=== PATIENT | female | born 1960 ===

== ENCOUNTER 2024-06-14 14:36 | Outpatient (BNV) | payer MEDICARE, SELFPAY | END 2024-06-23 15:05 | PROVIDERS: Admitting Provider Social Worker; PCP Internal Medicine; Visit Provider Radiology Diagnostic Radiology | DX: M79.662 Pain in left lower leg (principal); R22.42 Localized swelling, mass and lump, left lower limb; M25.461 Effusion, right knee; M17.11 Unilateral primary osteoarthritis, right knee | CPT/HCPCS: 73560; 93971 ==

== ENCOUNTER 2024-06-14 14:36 | Outpatient (BNV) | payer MEDICARE, SELFPAY | END 2024-06-17 17:57 | PROVIDERS: Admitting Provider Social Worker; PCP Internal Medicine; Visit Provider Nuclear Medicine | DX: Z86.718 Personal history of other venous thrombosis and embolism (principal) | CPT/HCPCS: 93970 ==

== ENCOUNTER 2024-06-14 14:36 | Inpatient (IN) | payer MEDICARE, SELFPAY ==
--- NOTE | ~2024-06-14 | US_ITS ---
CLINICAL HISTORY: r o DVT Venous duplex ultrasound bilateral lower extremity Comparison: None Findings: The visualized deep veins are fully compressible with normal Doppler color flow and spectral tracings. No popliteal cyst. Soft tissue edema of the lower extremity. IMPRESSION: 1. Negative for bilateral lower extremity deep vein thrombosis. This document has been electronically signed by: Maida Haq MD on 06/17/2024 20:13:23
--- NOTE | ~2024-06-14 | XR_ITS ---
EXAMINATION: XR KNEE, RIGHT CLINICAL INFORMATION: pain, effusion COMPARISON: None available. TECHNIQUE: Two views of the right knee. FINDINGS: Joint space narrowing involving the medial lateral compartment and the patellofemoral. Marginal osteophyte formation femoral condyles tibial plateau posterior superior and posterior inferior patella. Suprapatellar bursa joint effusion, small to moderate volume. No acute cortical disruption or malalignment. No lytic or blastic lesions. 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 Suprapatellar bursa joint effusion, small to moderate volume. Electronically signed by: Madhu Perez MD 06/23/2024 03:43 PM EDT
--- NOTE | ~2024-06-14 | US_ITS ---
CLINICAL HISTORY: pain, swelling Venous duplex ultrasound left lower extremity Comparison: US - US VENOUS DUPLEX LE BI - 06/17/24 17:48 EST Findings: The visualized deep veins are fully compressible with normal Doppler color flow and spectral tracings. No popliteal cyst. IMPRESSION: 1. Negative for left lower extremity deep vein thrombosis. This document has been electronically signed by: Terrie Atkins MD on 06/23/2024 17:54:06
--- NOTE | 2024-06-14 17:21 | PC.NURSE ---
Dahiana was a [facility] expedited admission who came to us from [facility] arriving by ambulance. There is little known about her psychiatric history and per hospital reports she is homeless possibly living in a hotel and was seen in the community by N who then presented her for medical concerns including weeping edema bilaterally to LE. At this time Dahiana was diagnosed with congestive heart failure and there are reports she had a stroke in her history. Dahiana adamantly refuses BP or Statin medication. BP on arrival 205/105 on recheck 187/91 Provider notified. Dahiana was changed over and her LL are red and have bilateral edema pitting +2 at feet and above ankles. There is clean gauze to her LLL which the nurse at [facility] reports was freshly applied by wound care and is just a sterile cover to what they believe is a vascular ulcer. Wound care consult entered upon admission. Dressing not disturbed and PT would not allow it to be removed. PT incredibly malodorous and has dry skin. She reports it has been a year since she has last taken a shower. 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 unclear as to HX of drinking or substance abuse she is a current cigarette smoker. Cessation consult entered. Dahiana stated she did have a flu shot but unclear as she is quite a poor historian. Can be quite demanding and aggressive verbally. No reports of physical aggression from sending facility. CV signed.
--- NOTE | 2024-06-14 17:22 | PHA.MEDREC ---
Pharmacy Consult ? Medication Reconciliation Pharmacy has reviewed the medication reconciliation completed by Concha Ramirez RN. Provider had nurse use discharge packet from previous facility as reflected.
--- OUTSIDE RECORDS SUMMARY | 2024-06-14 17:26 | XMS_ITS | Encounter Summary ---
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 abnormality. The laboratory results, imaging results and other diagnostic exam results were reviewed in the EMR. EKG Interpretation Critical Care Time None ? Medical Decision Making Medications furosemide (LASIX) injection 20 mg (20 mg intravenous Given 05/21/241825) cefTRIAXone (ROCEPHIN) 2 g in sterile water 20 mL IV syringe (2 g intravenous Given 05/21/242203) acetaminophen (TYLENOL) tablet 1,000 mg (1,000 mg oral Given 05/21/242203) ED Course as of 05/22/24 0005 FriMay 21, [id number] This is a 63-year-old female history of antiphospholipid syndrome presented hospital today forevaluation of bilateral lower extremity edema. On exam patient legs does appear to be red. This appears to be chronic changes. Will plan to obtainultrasound bilaterally. Patient does have weeping wound due to the swelling of the edema. Cardiac workup will be obtained as well. Not appear to be tachypneic or short of breath. Chest x-ray be obtained. BNP will be obtained assess for any signs of CKD or CHF that may be causing her lower extremityedema. A dose of Lasix will also be given to be given to the patient. [TC] 2308 Patient chemistry is unremarkable troponin is not elevated, BNP is not elevated. Patient CBC is unremarkable. Patient ultrasound did not show DVT bilateral. I discussed the case with the hospitalist. I am worried that patient is noncompliant. Will be very difficult for her to adhere to any medication regiment. Patient does have an ulcer on the posterior aspect of her right leg. Appears to be cellulitic in nature. The hospitalist Dr. Tena will plan to evaluate patient. [TC] ED Course User Index [TC] Skye Waddell, Clinical Impressions as of 05/22/24 0005 Bilateral leg edema Cellulitis of right lower extremity Procedures Procedures Diagnosis 1. Bilateral leg edema Vascular US Duplex Lower Extremity Venous Bilateral Vascular US Duplex Lower Extremity Venous Bilateral 2. Cellulitis of right lower extremity Disposition Data Unavailable ED Prescriptions None Physician Attestation Skye Waddell, DO 05/21/24 1634 Skye Waddell, DO 05/21/24 1744 Skye Waddell, DO 05/21/24 2134 Skye Waddell, DO 05/21/24 2353 Jabariainsley Waddell, DO 05/22/24 0005 documented in this encounter Plan of Treatment Not on file documented as of this encounter Procedures Procedure Name Priority Date/Time Associated Diagnosis Comments TROPONIN I HIGH SENSITIVITY STAT 05/21/2024 6:44 PM EST VAS US DUPLEX LOWER EXT VENOUS BILAT STAT 05/21/2024 6:20 PM EST Bilateral leg edema TROPONIN I HIGH SENSITIVITY STAT 05/21/2024 4:38 PM EST CBC WITH AUTO DIFFERENTIAL STAT 05/21/2024 4:38 PM EST CBC AND DIFFERENTIAL STAT 05/21/2024 4:38 PM EST B-TYPE NATRIURETIC PEPTIDE STAT 05/21/2024 4:38 PM EST MAGNESIUM STAT 05/21/2024 4:38 PM EST LIPASE STAT 05/21/2024 4:38 PM EST COMPREHENSIVE METABOLIC PANEL STAT 05/21/2024 4:38 PM EST documented in this encounter Results * Troponin I high sensitivity (05/21/2024 6:44 PM EST) High Sensitivity Troponin I 19 <=54 ng/L LAB CHEMISTRY METHOD 05/21/2024 7:58 PM EST [facility] Blood Venous blood specimen / Unknown Venipuncture / Unknown 05/21/2024 6:44 PM EST 05/21/2024 7:28 PM EST Narrative [facility] - 05/21/2024 7:58 PM EST High levels of biotin in samples may falsely decrease hsTroponin values. ??Use caution when interpreting hsTroponin results in patients taking biotin who exhibit renal impairment (eGFR <60) or in patients taking more than 20 mg/day of biotin. us Skye Jaden Faustino Waddell DO LAB BLOOD ORDERABLES Loly l Result [facility] [address] [place] [address], [place] [phone] * Vascular US Duplex Lower Extremity Venous Bilateral (05/21/2024 6:20 PM EST) Anatomical Region Laterality Modality Vascular, Abdomen Ultrasound 05/21/2024 6:51 PM EST Impressions 05/21/2024 6:51 PM EST Impression: No deep vein thrombosis. This document has been electronically signed by: Lexie Jamil MD on 05/21/2024 18:51:32 Narrative 05/21/2024 6:51 PM EST INDICATION: edema Bilateral lower extremity venous duplex ultrasound Comparison: None Findings: The visualized deep veins are fully compressible with normal flow. No popliteal cyst. Procedure Note Lexie Canas MD - 05/21/2024 INDICATION: edema Bilateral lower extremity venous duplex ultrasound Comparison: None Findings: The visualized deep veins are fully compressible with normal flow. No popliteal cyst. IMPRESSION: Impression: No deep vein thrombosis. This document has been electronically signed by: Lexie Jamil MD on 05/21/2024 18:51:32 us Skye Waddell DO CV VASCULAR PROCEDURES Fi nal Result * (ABNORMAL) CBC auto differential (05/21/2024 4:38 PM EST) WBC 6.9 4.8 - 10.8 K/mcL LAB HEMETOLOGY METHOD 05/21/2024 5:48 PM EST [facility] RBC 4.10 3.80 - 4.80 M/mcL LAB HEMETOLOGY METHOD 05/21/2024 5:48 PM EST [facility] Hemoglobin 13.2 11.5 - 16.0 g/dL LAB HEMETOLOGY METHOD 05/21/2024 5:48 PM [facility] Hematocrit 39.6 35.0 - 47.0 % LAB HEMETOLOGY METHOD 05/21/2024 5:48 PM [facility] MCV 96.8 79.0 - 98.0 FL LAB HEMETOLOGY METHOD 05/21/2024 5:48 PM [facility] MCH 32.3(H) 27.0 - 32.0 pcg LAB HEMETOLOGY METHOD 05/21/2024 5:48 PM [facility] MCHC 33.3 32.0 - 37.0 g/dL LAB HEMETOLOGY METHOD 05/21/2024 5:48 PM [facility] RDW 13.3 11.0 - 15.0 % LAB HEMETOLOGY METHOD 05/21/2024 5:48 PM [facility] Platelets 352 130 - 400 K/mcL LAB HEMETOLOGY METHOD 05/21/2024 5:48 PM [facility] MPV 9.7 7.0 - 11.0 FL LAB HEMETOLOGY METHOD 05/21/2024 5:48 PM [facility] NRBC 0.0 <1.0 % LAB HEMETOLOGY METHOD 05/21/2024 5:48 PM [facility] NRBC Absolute 0.00 <0.10 K/mcL LAB HEMETOLOGY METHOD 05/21/2024 5:48 PM [facility] Neutrophils Relative 74.1 % LAB HEMETOLOGY METHOD 05/21/2024 5:48 PM [facility] Lymphocytes Relative 16.6 % LAB HEMETOLOGY METHOD 05/21/2024 5:48 PM [facility] Monocytes Relative 7.1 % LAB HEMETOLOGY METHOD 05/21/2024 5:48 PM [facility] Eosinophils Relative 1.3 % LAB HEMETOLOGY METHOD 05/21/2024 5:48 PM EST [facility] Basophils Relative 0.6 % LAB HEMETOLOGY METHOD 05/21/2024 5:48 PM EST [facility] Immature Granulocytes Relative 0.3 % LAB HEMETOLOGY METHOD 05/21/2024 5:48 PM [facility] Neutrophils Absolute 5.13 1.50 - 7.00 K/mcL LAB HEMETOLOGY METHOD 05/21/2024 5:48 PM EST [facility] Lymphocytes Absolute 1.15 1.00 - 5.00 K/mcL LAB HEMETOLOGY METHOD 05/21/2024 5:48 PM EST [facility] Monocytes Absolute 0.49 0.20 - 1.00 K/mcL LAB HEMETOLOGY METHOD 05/21/2024 5:48 PM [facility] Eosinophils Absolute 0.09 0.00 - 0.50 K/mcL LAB HEMETOLOGY METHOD 05/21/2024 5:48 PM EST [facility] Basophils Absolute 0.04 0.00 - 0.20 K/mcL LAB HEMETOLOGY METHOD 05/21/2024 5:48 PM EST [facility] Immature Granulocytes Absolute 0.02 0.00 - 0.03 K/mcL LAB HEMETOLOGY METHOD 05/21/2024 5:48 PM [facility] Blood Venous blood specimen / Unknown Venipuncture / Unknown 05/21/2024 4:38 PM EST 05/21/2024 5:42 PM EST us Skye Waddell DO LAB BLOOD ORDERABLES Loly l Result [facility]) [facility] [address] [place] [address], * B-type natriuretic peptide (05/21/2024 4:38 PM EST) BNP 86 <=100 pcg/mL LAB CHEMISTRY METHOD 05/21/2024 6:16 PM EST [facility] Blood Venous blood specimen / Unknown Venipuncture / Unknown 05/21/2024 4:38 PM EST 05/21/2024 5:42 PM EST Skye Waddell LAB BLOOD ORDERABLES Loly l Result Performing Organization Address City/[facility]/ZIP Co de Phone Number [facility] [address] [place] [address], [place] [phone] * Magnesium (05/21/2024 4:38 PM EST) Pathologist [facility] Magnesium 2.1 1.9 - 2.6 mg/dL LAB CHEMISTRY METHOD 05/21/2024 6:10 PM EST [facility] Blood Venous blood specimen / Unknown Venipuncture / Unknown 05/21/2024 4:38 PM EST 05/21/2024 5:42 PM EST Skye Waddell LAB BLOOD ORDERABLES Loly l Result Performing Organization Address [facility]/ZIP Co de Phone Number [facility] [address] [place] [address], [place] [phone] * Lipase (05/21/2024 4:38 PM EST) Pathologist [facility] Lipase 43 13 - 75 unit/L LAB CHEMISTRY METHOD 05/21/2024 6:10 PM EST [facility] Blood Venous blood specimen / Unknown Venipuncture / Unknown 05/21/2024 4:38 PM EST 05/21/2024 5:42 PM EST Skye Waddell LAB BLOOD ORDERABLES Loly l Result Performing Organization Address City/[facility]/ZIP Co de Phone Number [facility] [address] [place] [address], [place] [phone] * (ABNORMAL) Comprehensive metabolic panel (05/21/2024 4:38 PM EST) Sodium 136 133 - 145 mmol/L LAB CHEMISTRY METHOD 05/21/2024 6:11 PM [facility] Potassium 4.1 3.5 - 5.5 mmol/L LAB CHEMISTRY METHOD 05/21/2024 6:11 PM [facility] Chloride 104 96 - 110 mmol/L LAB CHEMISTRY METHOD 05/21/2024 6:11 PM [facility] CO2 30 21 - 32 mmol/L LAB CHEMISTRY METHOD 05/21/2024 6:11 PM [facility] Anion Gap 2(L) 3 - 11 LAB CHEMISTRY METHOD 05/21/2024 6:11 PM [facility] Glucose 89 70 - 100 mg/dL LAB CHEMISTRY METHOD 05/21/2024 6:11 PM [facility] BUN 14 5 - 25 mg/dL LAB CHEMISTRY METHOD 05/21/2024 6:11 PM [facility] Creatinine 0.59 0.50 - 1.10 mg/dL LAB CHEMISTRY METHOD 05/21/2024 6:11 PM [facility] eGFR 100 >=60 mL/min/1. 73m2 LAB CHEMISTRY METHOD 05/21/2024 6:11 PM [facility] Comment:Calculation based on the??Chronic Kidney Disease Epidemiology Collaboration (CKD-EPI) equation refit??without adjustment for race. BUN/Creatinine Ratio 23.7 LAB CHEMISTRY METHOD 05/21/2024 6:11 PM [facility] Calcium 10.0 8.5 - 10.5 mg/dL LAB CHEMISTRY METHOD 05/21/2024 6:11 PM [facility] AST (SGOT) 17 10 - 42 unit/L LAB CHEMISTRY METHOD 05/21/2024 6:11 PM [facility] ALT (SGPT) 24 10 - 60 unit/L LAB CHEMISTRY METHOD 05/21/2024 6:11 PM EST [facility] Alkaline Phosphatase 106 42 - 121 unit/L LAB CHEMISTRY METHOD 05/21/2024 6:11 PM EST [facility] Total Protein 6.8 6.0 - 8.0 g/dL LAB CHEMISTRY METHOD 05/21/2024 6:11 PM EST [facility] Albumin 3.4 3.2 - 5.0 g/dL LAB CHEMISTRY METHOD 05/21/2024 6:11 PM EST [facility] Total Bilirubin 1.0 0.0 - 1.4 mg/dL LAB CHEMISTRY METHOD 05/21/2024 6:11 PM EST [facility] Blood Venous blood specimen / Unknown Venipuncture / Unknown 05/21/2024 4:38 PM EST 05/21/2024 5:42 PM EST us Skye Waddell DO LAB BLOOD ORDERABLES Loly l Result [facility] [address] [place] [address], [place] [phone] * Troponin I high sensitivity (05/21/2024 4:38 PM EST) [facility] High Sensitivity Troponin I 17 <=54 ng/L LAB CHEMISTRY METHOD 05/21/2024 6:09 PM EST [facility] Blood Venous blood specimen / Unknown Venipuncture / Unknown 05/21/2024 4:38 PM EST 05/21/2024 5:42 PM EST Narrative [facility] - 05/21/2024 6:09 PM EST High levels of biotin in samples may falsely decrease hsTroponin values. ??Use caution when interpreting hsTroponin results in patients taking biotin who exhibit renal impairment (eGFR <60) or in patients taking more than 20 mg/day of biotin. us Skye Waddell DO LAB BLOOD ORDERABLES Loly l Result KETAN LINDO MD ([facility]) [facility] [address] [place] [address], documented in this encounter Visit Diagnoses Diagnosis Cellulitis of left lower extremity- Primary Bilateral leg edema Edema Cellulitis of right lower extremity Housing insecurity documented in this encounter Administered Medications Inactive Administered Medications - up to 3 most recent administrations Medication Order MAR Action Action Date Dose Rate Site acetaminophen (TYLENOL) tablet 1,000 mg 1,000 mg, oral, Once, On Fri05/21/24 at 2130, For 1 dose Given 05/21/2024 10:04 PM EST 1,000 mg acetaminophen (TYLENOL) tablet 650 mg 650 mg, oral, Every 6 hours PRN, mild pain, moderate pain, Starting on Fri05/22/24 at 0540, For 7 days aspirin chewable tablet 81 mg 81 mg, oral, Once, On Fri05/22/24 at 0859, For 1 dose Given 05/22/2024 9:08 AM EST 81 mg cefTRIAXone (ROCEPHIN) 2 g in sterile water 20 mL IV syringe 2 g, intravenous, at 400 mL/hr, Administer over 3 Minutes, Once, On Fri05/21/24 at 2125, For 1 dose, Do not administer simultaneously with any calcium containing solutions via a Y-site in any patient., Indication: Skin/Soft Tissue Given 05/21/2024 10:04 PM EST 2 g 400 mL/hr enoxaparin (LOVENOX) injection 40 mg 40 mg, subcutaneous, Daily, First dose on Fri05/22/24 at 0900, For 7 days, Indication: VTE/PE Prophylaxis Given 05/22/2024 8:47 AM EST 40 mg Left Lower Abdomen furosemide (LASIX) injection 20 mg 20 mg, intravenous, Once, On Fri05/21/24 at 1745, For 1 dose Given 05/21/2024 6:26 PM EST 20 mg documented in this encounter Active and Recently Administered Medications Times are shown in EST. Scheduled Medication Order 05/20/2024 05/21/2024 05/22/2024 acetaminophen (TYLENOL) tablet 1,000 mg (COMPLETED) 1,000 mg, oral, Once, On Fri05/21/24 at 2130, For 1 dose 2204 (Given - Provider: Gretel Avelar, ELICIA) aspirin chewable tablet 81 mg (COMPLETED) 81 mg, oral, Once, On 05/22/24 at 0859, For 1 dose 0908 (Given - Provid er: Kimmie Coleman RN) cefTRIAXone (ROCEPHIN) 2 g in sterile water 20 mL IV syringe (COMPLETED) 2 g, intravenous, at 400 mL/hr, Administer over 3 Minutes, Once, On Fri05/21/24 at 2125, For 1 dose, Do not administer simultaneously with any calcium containing solutions via a Y-site in any patient., Indication: Skin/Soft Tissue 2203 (Given - Provider: Gretel Avelar RN) enoxaparin (LOVENOX) injection 40 mg 40 mg, subcutaneous, Daily, First dose on 05/22/24 at 0900, For 7 days, Indication: VTE/PE Prophylaxis 0847 (Given - Provid er: Kimmie Coleman RN) furosemide (LASIX) injection 20 mg (COMPLETED) 20 mg, intravenous, Once, On Fri05/21/24 at 1745, For 1 dose 1826 (Given - Provider: Gretel Avelar RN) PRN Medication Order 05/20/2024 05/21/2024 05/22/2024 acetaminophen (TYLENOL) tablet 650 mg 650 mg, oral, Every 6 hours PRN, mild pain, moderate pain, Starting on 05/22/24 at 0540, For 7 days documented in this encounter Orders Medications Ordered That Zuhair ht Not Have Been Administered Count Last Ordered Date First Ordered Date acetaminophen (TYLENOL) tablet 650 mg 1 11/2024 sodium bicarbonate injection 50 mEq 1 05/21 EKG Orders Without Results Count Last Ordered D ate First Ordered Date ECG 12-LEAD 2 05/21/2024 General Supply Count Last Ordered Date First Or dered Date WALKER 1 05/22/2024 documented in this encounter Care Teams Special Assemblies Supervisor Relationship Specialty Start Date End Date Lizeth Mayers MD PCP - General Internal Medicine 09/12/15 documented as of this encounter
--- OUTSIDE RECORDS SUMMARY | 2024-06-14 17:26 | XMS_ITS | Clinical Summary ---
Author Organization [facility] Address [address] [place] [address] Phone Care Team Providers Care Airways Control Specialist Name Role Phone Lizeth Mayers MD Primary Care Provider [phone] Allergies No known active allergies Medications doxycycline (VIBRAMYCIN) 100 mg capsule Take 1 capsule (100 mg total) by mouth 2 (two) times a day for 10 days. Take with at least 8 ounces (large glass) of water, do not lie down for 30 minutes after 20 capsule 05/22/2024 06/01/19 25 Encounters Date Type Department Care Team Description 05/21/2024 4:06 PM EST - 05/22/2024 6:19 PM EST Emergency [facility] Emergency [address] [place] [address] Skye Waddell DO Garvin, Meredith Kate, MD Carroll, James F, MD Cellulitis of left lower extremity (Primary Dx); Bilateral leg edema; Cellulitis of right lower extremity; Housing insecurity Discharge Disposition: Home or Self Care from Last 3 Months Social History Tobacco Use Types Packs/Day Years Used Date Smoking Tobacco: Never Assessed Comments Unknown Sex and Gender Information Value Date Recorded Sex Assigned at Not on file Legal Sex Female 11:54 PM EST Gender Identity Not on file Sexual Orientation Not on file Last Filed Vital Signs Vital Sign Reading [...] Mass Index 29.03 05/21/2024 4:48 PM EST Plan of Treatment Health Maintenance Due Date Last Done Comments COVID-19 Vaccine (#1) 11/16/1965 DTaP,Tdap,and Td Vaccines (1 - Tdap) 1977 Pneumococcal Vaccine: 50+ Years (1 of 2 - PCV) 1977 Pneumococcal Vaccine: Pediatrics (0 to 5 Years) and At-Risk Patients (6 to 64 Years) (1 of 2 - PCV) 1977 Zoster Vaccines (1 of 2) 1977 Cervical Cancer Screening: P ap Smear 11/16/1979 Breast Cancer Screening 12/23/2019 12/23/19 18, 11/04/2016, 10/28/2016 Influenza Vaccine (#1) 2023 Cholesterol Screening (Lipid Panel) 05/21/2024 Colorectal Cancer Screening: Colonoscopy 05/21/2024 Depression Screening 05/21/2024 Falls Risk Assessment 05/21/2024 Hepatitis C Screening 05/21/2024 Medicare Annual Wellness Visit 05/21/2024 Osteoporosis Screening (Bone Density Screening) 05/21/2024 Social Influencers of Health Screening 05/21/2024 Hypertension/CHF/CAD Annual BMP Blood Test 05/21/2025 05/21/2024 RSV Immunization Patients 60 + Years Old (1 - 1-dose 75+ series) 2033 HIB Vaccines Aged Out No longer eligi ble based on patient's age to complete this topic HPV Vaccines Aged Out No longer eligi ble based on patient's age to complete this topic Hepatitis A Vaccines Aged Out No long er eligible based on patient's age to complete this topic Hepatitis B Vaccines Aged Out No long er eligible based on patient's age to complete this topic IPV Vaccines Aged Out No longer eligi ble based on patient's age to complete this topic MMR Vaccines Aged Out No longer eligi ble based on patient's age to complete this topic Meningococcal ACWY Vaccine Aged Out N o longer eligible based on patient's age to complete this topic Meningococcal B Vacine Aged Out No lo nger eligible based on patient's age to complete this topic RSV Immunization Patients Under 20 months Aged Out No longer eligible b ased on patient's age to complete this topic Varicella Vaccines Aged Out No longer eligible based on patient's age to complete this topic Procedures Procedure Name Priority Date/Time Associated Diagnosis Comments TROPONIN I HIGH SENSITIVITY STAT 05/21/2024 6:44 PM EST VAS US DUPLEX LOWER EXT VENOUS BILAT STAT 05/21/2024 6:20 PM EST Bilateral leg edema CBC WITH AUTO DIFFERENTIAL STAT 05/21/2024 4:38 PM EST B-TYPE NATRIURETIC PEPTIDE STAT 05/21/2024 4:38 PM EST MAGNESIUM STAT 05/21/2024 4:38 PM EST LIPASE STAT 05/21/2024 4:38 PM EST COMPREHENSIVE METABOLIC PANEL STAT 05/21/2024 4:38 PM EST CBC AND DIFFERENTIAL STAT 05/21/2024 4:38 PM EST TROPONIN I HIGH SENSITIVITY STAT 05/21/2024 4:38 PM EST SCR MAMMO BI INCL CAD Routine 12/22/2017 1:57 PM EDT Encounter for screening mammogram for malignant neoplasm of breast from Last 3 Months or Most Recently Relevant to Health Maintenance Results * Troponin I high sensitivity (05/21/2024 6:44 PM EST) Only the most recent of2 resultswithin the time period is included. High Sensitivity Troponin I 19 <=54 ng/L LAB CHEMISTRY METHOD 05/21/2024 7:58 PM EST [facility] Blood Venous blood specimen / Unknown Venipuncture / Unknown 05/21/2024 6:44 PM EST 05/21/2024 7:28 PM EST [facility]ative [facility] - 05/21/2024 7:58 PM EST High levels of biotin in samples may falsely decrease hsTroponin values. ??Use caution when interpreting hsTroponin results in patients taking biotin who exhibit renal impairment (eGFR <60) or in patients taking more than 20 mg/day of biotin. us Skye Jaden Faustino Waddell DO LAB BLOOD ORDERABLES Loly l Result [facility] ([facility]) [facility] [address] [place] [address], [place] [phone] * Vascular US Duplex Lower Extremity Venous [...] Lexie Jamil MD on 05/21/2024 18:51:32 us Jabariainsley Jaden Faustino Waddell DO CV VASCULAR PROCEDURES Fi nal Result * (ABNORMAL) CBC auto differential (05/21/2024 4:38 PM EST) WBC 6.9 4.8 - 10.8 [facility] LAB HEMETOLOGY METHOD 05/21/2024 5:48 PM [facility] RBC 4.10 3.80 - 4.80 [facility] LAB HEMETOLOGY METHOD 05/21/2024 5:48 PM [facility] Hemoglobin 13.2 11.5 - 16.0 g/dL LAB HEMETOLOGY METHOD 05/21/2024 5:48 PM [facility] Hematocrit 39.6 35.0 - 47.0 % LAB HEMETOLOGY METHOD 05/21/2024 5:48 PM [facility] MCV 96.8 79.0 - 98.0 FL LAB HEMETOLOGY METHOD 05/21/2024 5:48 PM [facility] MCH 32.3(H) 27.0 - 32.0 pcg LAB HEMETOLOGY METHOD 05/21/2024 5:48 PM [facility] MCHC 33.3 32.0 - 37.0 g/dL LAB HEMETOLOGY METHOD 05/21/2024 5:48 PM [facility] RDW 13.3 11.0 - 15.0 % LAB HEMETOLOGY METHOD 05/21/2024 5:48 PM [facility] Platelets 352 130 - 400 K[facility] HEMETOLOGY METHOD 05/21/2024 5:48 PM [facility] MPV 9.7 7.0 - 11.0 FL LAB HEMETOLOGY METHOD 05/21/2024 5:48 PM [facility] NRBC 0.0 <1.0 % LAB HEMETOLOGY METHOD 05/21/2024 5:48 PM [facility] NRBC Absolute 0.00 <0.10 [facility] LAB HEMETOLOGY METHOD 05/21/2024 5:48 PM [facility] Neutrophils Relative 74.1 % LAB HEMETOLOGY METHOD 05/21/2024 5:48 PM [facility] Lymphocytes Relative 16.6 % LAB HEMETOLOGY METHOD 05/21/2024 5:48 PM [facility] Monocytes Relative 7.1 % LAB HEMETOLOGY METHOD 05/21/2024 5:48 PM [facility] Eosinophils Relative 1.3 % LAB HEMETOLOGY METHOD 05/21/2024 5:48 PM [facility] Basophils Relative 0.6 % LAB HEMETOLOGY METHOD 05/21/2024 5:48 PM [facility] Immature Granulocytes Relative 0.3 % LAB HEMETOLOGY METHOD 05/21/2024 5:48 PM [facility] Neutrophils Absolute 5.13 1.50 - 7.00 K/mcL LAB HEMETOLOGY METHOD 05/21/2024 5:48 PM [facility] Lymphocytes Absolute 1.15 1.00 - 5.00 K/mcL LAB HEMETOLOGY METHOD 05/21/2024 5:48 PM [facility] Monocytes Absolute 0.49 0.20 - 1.00 K/mcL LAB HEMETOLOGY METHOD 05/21/2024 5:48 PM [facility] Eosinophils Absolute 0.09 0.00 - 0.50 K/mcL LAB HEMETOLOGY METHOD 05/21/2024 5:48 PM [facility] Basophils Absolute 0.04 0.00 - 0.20 K/mcL LAB HEMETOLOGY METHOD 05/21/2024 5:48 PM [facility] Immature Granulocytes Absolute 0.02 0.00 - 0.03 K/mcL LAB HEMETOLOGY METHOD 05/21/2024 5:48 PM [facility] Blood Venous blood specimen / Unknown Venipuncture / Unknown 05/21/2024 4:38 PM EST 05/21/2024 5:42 PM EST Skye Waddell DO LAB BLOOD ORDERABLES Loly l Result Performing Organization Address [facility]/ZIP Co de Phone Number [facility] [address] [place] [address], * B-type natriuretic peptide (05/21/2024 4:38 PM EST) [facility] BNP 86 <=100 pcg/mL LAB CHEMISTRY METHOD 05/21/2024 6:16 PM EST [facility] Blood Venous blood specimen / Unknown Venipuncture / Unknown 05/21/2024 4:38 PM EST 05/21/2024 5:42 PM EST Skye Waddell LAB BLOOD ORDERABLES Loly l Result Performing Organization Address [facility] Co de Phone Number [facility] [address] [place] [address], * Magnesium (05/21/2024 4:38 PM EST) [facility] Magnesium 2.1 1.9 - 2.6 mg/dL LAB CHEMISTRY METHOD 05/21/2024 6:10 PM EST [facility] Blood Venous blood specimen / Unknown Venipuncture / Unknown 05/21/2024 4:38 PM EST 05/21/2024 5:42 PM EST Skye Waddell LAB BLOOD ORDERABLES Loly l Result Performing Organization Address [facility]/ZIP Co de Phone Number [facility] [address] [place] [address], [place] [phone] * Lipase (05/21/2024 4:38 PM EST) [facility] Lipase 43 13 - 75 unit/L LAB CHEMISTRY METHOD 05/21/2024 6:10 PM EST [facility] Blood Venous blood specimen / Unknown Venipuncture / Unknown 05/21/2024 4:38 PM EST 05/21/2024 5:42 PM EST us Skye Harmon Waddell DO LAB BLOOD ORDERABLES Loly l Result [facility] [address] [place] [address], [place] [phone] * (ABNORMAL) Comprehensive metabolic panel (05/21/2024 4:38 PM EST) Pathologist [facility] Sodium 136 133 - 145 mmol/L LAB CHEMISTRY METHOD 05/21/2024 6:11 PM [facility] Potassium 4.1 3.5 - 5.5 mmol/L LAB CHEMISTRY METHOD 05/21/2024 6:11 PM [facility] Chloride 104 96 - 110 mmol/L LAB CHEMISTRY METHOD 05/21/2024 6:11 PM [facility] CO2 30 21 - 32 mmol/L LAB CHEMISTRY METHOD 05/21/2024 6:11 PM [facility] Anion Gap 2(L) 3 - 11 LAB CHEMISTRY METHOD 05/21/2024 6:11 PM [facility] Glucose 89 70 - 100 mg/dL LAB CHEMISTRY METHOD 05/21/2024 6:11 PM [facility] BUN 14 5 - 25 mg/dL LAB CHEMISTRY METHOD 05/21/2024 6:11 PM [facility] Creatinine 0.59 0.50 - 1.10 mg/dL LAB CHEMISTRY METHOD 05/21/2024 6:11 PM [facility] eGFR 100 >=60 mL/min/1. 73m2 LAB CHEMISTRY METHOD 05/21/2024 6:11 PM [facility] Comment:Calculation based on the??Chronic Kidney Disease Epidemiology Collaboration (CKD-EPI) equation refit??without adjustment for race. BUN/Creatinine Ratio 23.7 LAB CHEMISTRY METHOD 05/21/2024 6:11 PM [facility] Calcium 10.0 8.5 - 10.5 mg/dL LAB CHEMISTRY METHOD 05/21/2024 6:11 PM [facility] AST (SGOT) 17 10 - 42 unit/L LAB CHEMISTRY METHOD 05/21/2024 6:11 PM [facility] ALT (SGPT) 24 10 - 60 unit/L LAB CHEMISTRY METHOD 05/21/2024 6:11 PM [facility] Alkaline Phosphatase 106 42 - 121 unit/L LAB CHEMISTRY METHOD 05/21/2024 6:11 PM [facility] Total Protein 6.8 6.0 - 8.0 g/dL LAB CHEMISTRY METHOD 05/21/2024 6:11 PM [facility] Albumin 3.4 3.2 - 5.0 g/dL LAB CHEMISTRY METHOD 05/21/2024 6:11 PM [facility] Total Bilirubin 1.0 0.0 - 1.4 mg/dL LAB CHEMISTRY METHOD 05/21/2024 6:11 PM [facility] Blood Venous blood specimen / Unknown Venipuncture / Unknown 05/21/2024 4:38 PM EST 05/21/2024 5:42 PM EST us Skye Thomasny Bairon DO LAB BLOOD ORDERABLES Loly l Result [facility] [address] [place] [address], * SCR MAMMO BI INCL CAD (12/22/2017 1:57 PM EDT) Anatomical Region Laterality Modality Radiographic Pushpa ging 10/28/2016 1:15 PM EDT Narrative 12/23/2017 12:24 PM EDT This is a summary report. The complete report is available in the patient's medical record. If you cannot access the medical record, please contact the sending organization for a detailed fax or copy. Full field digital screening mammography, reviewed with CAD and compared to previous. The breast tissue is heterogeneously dense, limiting sensitivity. No suspicious mass, architectural distortion or suspicious calcifications are identified. IMPRESSION: : Dense breast tissue, limiting the sensitivity of mammography. No mammographic evidence of malignancy. BIRADS 1-Negative; N. 5 year breast cancer risk assessment 1.4 % Lifetime breast cancer risk assessment 7.6 % Breast cancer risk category Low (<15%) Procedure Note Linda Massey MD - 04/02/2022 This is a summary report. The complete report is available in thepatient's medical record. If you cannot access the medical record, pleasecontact the sending organization for a detailed fax or copy. Full field digital screening mammography, reviewed with CAD and comparedto previous. The breast tissue is heterogeneously dense, limitingsensitivity. No suspicious mass, architectural distortion or suspiciouscalcifications are identified. IMPRESSION: : Dense breast tissue, limiting the sensitivity of mammography. Nomammographic evidence of malignancy. BIRADS 1-Negative; N. 5 year breast cancer risk assessment 1.4 % Lifetime breast cancer risk assessment 7.6 % Breast cancer risk category Low (<15%) us Lizeth Mayers MD IMG XR PROCEDURES Final Result from Last 3 Months or Most Recently Relevant to Health Maintenance Insurance [facility] MEDICARE ADVANTAGE on file Advance Directives * Full Code - Confirmed (Latest Code Status on File) Date Activated Date Inactivated Comments 05/22/2024 5:40 AM 05/22/2024 8:25 PM This code stat us was ascertained in the following way: Code status discussion: discussion with patient To update the patient's code status, place a code status order. Do not modify or discontinue any currently active code status orders. Care Teams Airways Control Specialist Relationship Specialty Start Date End Date Lizeth Mayers MD PCP - General Internal Medicine 09/12/15
[2024-06-14 18:00] LABS: Alkaline Phosphatase 114 U/L (39-117); Anion Gap 14 (12-20); Aspartate Amino Transferase 25 U/L (5-31); Bilirubin Total 0.4 mg/dL (0.0-1.0); Blood Urea Nitrogen 34 mg/dL (9-16); Calcium 9.6 mg/dL (8.4-10.2); Carbon Dioxide 27 mmol/L (22-29); Chloride 104 mmol/L (96-108); Estimated Glomerular Filt Rate > 60; Glucose Random 110 mg/dL (60-115); Potassium 4.4 mmol/L (3.3-5.1); Sodium 141 mmol/L (135-145)
[2024-06-14 18:12] LABS: Alanine Aminotransferase 28 U/L (0-31)
[2024-06-14 20:00] VITALS: BP 135/76; PULSE 81; RESP 18; TEMP 36.2; O2SAT 99
[2024-06-14] MEDS: Ibuprofen 400 MG TABLET PO (21:48)
[2024-06-14] MEDS: OLANZapine ODT 10 MG TAB.RAPDIS TRANSLINGU (22:18)
[2024-06-15 08:00] VITALS: BP 128/75; PULSE 76; RESP 16; O2SAT 98
[2024-06-15] MEDS: Aspirin 81 MG TAB.CHEW PO (08:17)
--- NOTE | 2024-06-15 09:04 | HO.PSYADMNOT ---
HPI Date of Service: 06/15/24 Chief Complaint: delusional disorder Sources of Information: patient interviewed, chart reviewed and crisis/core team assessment reviewed Additional Sources of Information: Medical record from [facility] and [facility] HPI Subjective Notes: Melendez Warning (shows understanding) and Conditional Voluntary Narrative: Ms. He is a 63 year-old woman with hx of paranoid/persecutory and some grandiose delusions who initially was assessed by N in the community (place of the assessment is unknown). Pt was transferred to [facility] on 05/28/2024l. She presented with bilat lower extremity edema and wound on left calf due to untreated edema. Pt was medically admitted. She was found to have elevated BNP 722, high sensitivity troponin were high but stable at 44. She had bilateral LE venous doppler which was negative for DVT. She was found to be in exacerbation of what seems to be new diagnosis of CHF. She was seen by cardiology, started on IV lasix for diuresis. She was transitioned to oral lasix and spironolactone. Other pertinent labs completed at [place] on 06/09/2024 include CBC without leukocytosis or leukopenia. CMP with no electrolyte abnormalities, but BUN elevated at 32, Cr 0.68, creatinine clearance 97, LFT wnl. Per medical records from [place], pt is known to [facility] through previous admission back in 11/2023 on medical floor when she was found to have NSTEMI but denied cardiac catheterization. Pt noted to have paranoid delusions stating she did not trust doctors and did not think their diagnoses were accurate. 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 She also reported that this person along with others including staff at the hospital were trying to make her transgendered with combination of substances she had formula for. Her utox was negative. While at [place] pt was seen by psychiatric consult and started on olanzapine 5mg po BID. On the unit, pt presents as somewhat guarded and irritable. She reports that she has been followed by this person who is now a senator. She reports other powerful people, including president Trchela and Jimenid Melendezk are going after her. She reports she has the mental power to hack into people's account and that her friends and family are also at risk. She reports that she does not believe there is anything wrong with her heart and does not believe she has heart failure and thinks this is all conspiracy to keep her in the hospital. She reports she does not need medications for blood pressure nor to lower cholesterol to decrease risk of CVA which she has had in the past. She denies SI and HI. She does report previous psychiatric admission but does not provide much information about it. She reports she used to see a psychologist after her divorce but she was told she has no mental illness. She denies taking psychotropic medications in the past. She denies hearing voices but at the same time reports that she hears people here on the unit talking about her and talking about how patients here get lobotomies. She denies any problems with sleep or appetite. Pt reports she does not feel safe anywhere and does not know who she can trust. Other medical records gathered from [facility], as we have very limited information about Ms. 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 She was also noted to have bilateral edema and wound on left calf and sent to the hospital. Head CT from 11/23/2023 showed encephalomalacia in the right parietotemporal lobe and left insula, multiple small foci of chronic infarct and global atrophy. Past Psychiatric History: Inpt: pt reports prior admission but unclear where OP: none Pt denies hx of suicide attempts Medical Evaluation Reviewed: Yes [facility] Medical History (Updated 06/16/24 @ 08:49 by Maria Elena Zuluaga NP) Venous stasis dermatitis Myocardial infarction HTN (hypertension) CVA (cerebral vascular accident) Social History: Pt reports she is . 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 She is not able to have Substance History: reports hx of alcohol use but denies any current use Trauma History: denies Diagnostics Vital Signs (24Hr): Vital Signs - 24 hr 06/14/24 20:00 Temperature 97.1 F Pulse Rate 81 Respiratory Rate 18 Blood Pressure 135/76 Pulse Oximetry 99 Oxygen Delivery Method Room Air Labs 06/14/24 17:25 Labs: Laboratory Results - last 48 hr 06/14/24 17:25 Sodium 141 Potassium 4.4 Chloride 104 Carbon Dioxide 27 Anion Gap 14 BUN 34 H Creatinine 0.80 Estim Creat Clear Calc TNP Estimated GFR > 60 Random Glucose 110 Calcium 9.6 Total Bilirubin 0.4 AST 25 ALT 28 Alkaline Phosphatase 114 Total Protein 8.0 Albumin 4.0 Meds/Allergies Meds Home Medications ?Medication ?Instructions ?Recorded ?Confirmed ?Type aspirin 81 mg chewable tablet 81 mg PO DAILY 06/14/24 06/14/24 History atorvastatin 40 mg tablet 40 mg PO DAILY 06/14/24 06/14/24 History furosemide 40 mg tablet 40 mg PO DAILY 06/14/24 06/14/24 History ibuprofen 400 mg tablet 400 mg PO Q8H PRN Mild Pain (Scale 06/14/24 06/14/24 History Score 1-4) metoprolol succinate 25 mg 25 mg PO DAILY 06/14/24 06/14/24 History tablet,extended release 24 hr olanzapine 5 mg tablet 5 mg PO BID 06/14/24 06/14/24 History spironolactone 25 mg tablet 25 mg PO DAILY 06/14/24 06/14/24 History Allergies Allergies Allergy/AdvReac Type Severity Reaction Status Date / Time codeine AdvReac Itching Verified 06/14/24 16:07 Mental Status Exam Mental Status Exam Narrative: Appearance: wearing hospital gown, rotten front teeth, unkempt hair, in NAD Behavior: guarded, suspicious but opening more as conversation went on Psychomotor: no agitation, no retardation noted. No tremors noted Speech: clear, normal rate, verbose, regular rhythm, spontaneous TP: derailment, loose associations TC: paranoid/persecutory delusions Mood: I'm better Affect: constricted, suspicious SI: denies HI: denies VH/AH: appears internally preoccupied but denies when asked Delusions: complex persecutory and delusional system of senator conspiring to take her buildings away, being able to hack into people's accounts, being monitored by the president of [employer] and Jim Maldonado. Does not believe medical doctors are telling the truth and she denies having CHF. Insight/judgment: impaired x 2. Memory/cog: alert, oriented x 3. situation is vague as she thinks she is here due to conspiracy to steal her her buildings. Assessment & Plan Assessment & Plan (1) Schizoaffective disorder: Status: Acute Code(s): F25.9 - Schizoaffective disorder, unspecified (2) CHF (congestive heart failure): Status: Acute Code(s): I50.9 - Heart failure, unspecified Assessment and Plan: newly diagnosed at [place] 06/09/24- started on lasix and spironolactone ECHO 11/24/2023- LV systolic function low normal LVEF 50-55%; Basal inferior wall hypokinetic, dilated left atrium, mild-moderate mitral regurgitation. (3) NSTEMI (non-ST elevated myocardial infarction): Status: Acute Code(s): I21.4 - Non-ST elevation (NSTEMI) myocardial infarction Assessment and Plan: 11/2023 seen at [facility] (4) CVA (cerebral vascular accident): Status: Acute Code(s): I63.9 - Cerebral infarction, unspecified Assessment and Plan: unknown date (pt reports 1997 but she is not reliable sports reporter)- head CT on 11/2023 does show encephalomalacia in the right parietotemporal lobe and left insula, multiple small foci of chronic infart, global atrophy. Plan Ms. He is a 63 year-old woman with hx of paranoid/persecutory delusions and some grandiose delusions. She initially was assessed by N in the community and sent to [place]. She presented with bilateral lower edema, admitted medically and found to have exacerbation of CHF. She presented with paranoid and persecutory delusions, not believing what doctors are telling her about her medical diagnoses and refusing treatment on the basis of delusional believes. It also appears that there has been more concern in terms of her ability to care for herself, and on 05/21/24 per [facility] ED records, was brought by fire dept as apartment had no heat and pt noted to have LE edema. Pt reports this is not true and it was the fire department that boost heater intentionally. We discussed risks, benefits and alternative treatment options, she agrees to continue olanzapine, she declines cardiac medications stating she does not have any problems with her heart. PLAN 1. Admit to , CV, 15 minutes checks for safety 2. Increase olanzapine to 10mg po BID 3. Medical consult 4. obtain collateral information 5. aftercare planning 6. pt shows no capacity to make medical decisions. Patient educated on: diagnosis and medication risk/benefits Informed Consent: understands Reason for continued inpatient stay Substantial Risk for: inability to function Statement Statement: I have reviewed the history and physical and performed a pertinent examination on my patient. No changes have occurred unless specified. If the History and Physical was not performed prior to admission, the Hospitalist's service will be consulted for completing the admission physical. Time Spent With Patient Time: Total time managing care of this patient today 45 minutes.
[2024-06-15 09:42] LABS: Estimated Average Glucose 97 mg/dL; Hemoglobin A1C 110.8723 umol/L; Total Hemoglobin (HGBA1C) 3507.1857 umol/L
[2024-06-15 09:45] LABS: Cholesterol 163 mg/dL (<200); HDL Cholesterol 36 mg/dL (>40); LDL Cholesterol Calculated 112 mg/dL (<100); Magnesium 2.6 mg/dL (1.6-2.6); Triglycerides 79 mg/dL (<150)
[2024-06-15 09:46] VITALS: BMI 26.4
[2024-06-15 09:59] LABS: Thyroid Stimulating Hormone 1.82 uIU/mL (0.32-4.0)
[2024-06-15 10:06] LABS: Vitamin B12 296 pg/mL (200-900)
[2024-06-15] MEDS: Nicotine 21 MG PATCH.TD24 TRANSDERMA (10:33)
[2024-06-15] MEDS: Ibuprofen 400 MG TABLET PO ×2 (10:33→21:24)
--- NOTE | 2024-06-15 15:33 | HO.PM.IMCN ---
History of Present Illness Data of Consult Service Date: 06/15/24 Primary Care Provider: Lizeth Mayers MD HPI Reason for consult: Admission H&P Pt is a 63-year-old female with a PMH significant for CAD, hx of [place], HLD, hx of CVA, lower leg edema,?and mood disorder who is admitted to [facility] for increasingly bizarre, paranoid, and delusional behavior. Pt initially presented to [facility] for increasing lower leg edema and weakness in legs bilaterally. During hospital admission pt was found to be delusional, paranoid, and manic. Pt despite many paranoid delusions, including people threatening to kill, make her transgender, or maker sick by giving her medications. Medical consult for admission H&P. ?Pt appears delusional as well as irritable and emotionally labile during interview and exam. Pt has been refusing her medications while on the unit, including metoprolol, Lasix, and spironolactone. When asked why, pt states she actually did want to continue the medications to reduce the swelling in her legs, but would did not want take any other medications because they ?make me sick?. Reports she threatened to kick the nurse that was attempting to give her her daily medications. Pt notes that the swelling in her legs has gone down since earlier. Is no longer painful. However, he is adamant she wants to see wound care to take care of the ulcer on the back of her left leg. Pt denies any other acute medical complaints. No SOB or difficulty breathing. Denies fever, chills, nausea, vomiting, abdominal pain. No chest pain/pressure, palpitations. Labs reviewed, significant for mildly elevated LDL of 112, otherwise grossly unremarkable and WNL. Vitals stable and WNL. Review of Systems Review of Systems: Negative except for that which is stated in the HPI. [facility] Medical History (Updated 06/15/24 @ 18:24 by OFELIA Rachel) Venous stasis dermatitis Myocardial infarction HTN (hypertension) CVA (cerebral vascular accident) Social History Household Members: None Housing: Homeless Do you presently have visiting nurse or other home services: No Patient Tobacco Use Status: Current everyday Tobacco user Tobacco use type: Cigarette Smoked in Last 30 Days: Yes Patient Interested in Nicotine Replacement: Yes Patient Given Instructions on How to Stop Smoking: Yes Date Education Initiated: 06/14/24 Use of substances other than those prescribed or required for medical reasons: No Currently Displaying Signs/Symptoms of Drug Intoxication Withdrawal: No Any prior treatment program specific to substance use: No Have you been hit, kicked, punched, or otherwise hurt by someone within the past year? If so, by whom?: No Do you feel safe in your current relationship?: No Current Relationship Is there a partner from a previous relationship who is making you feel unsafe now?: No Are you made to feel afraid or neglected: No Advance Directives: No Advance Directives Information Provided: Yes Do you have thoughts of harming others: None Do you have a plan to hurt others: No Plan Recently lost weight without trying: No Eating poorly because of decreased appetite: No Nutrition Risks: No Nutritional Risk Patient : No : No Poor oral hygiene: Yes service: No Sexual orientation: Straight/Heterosexual Meds Allergies Allergy/AdvReac Type Severity Reaction Status Date / Time codeine AdvReac Itching Verified 06/14/24 16:07 Active Medications: Current Medications Acetaminophen (Acetaminophen 325 Mg Tablet) 650 mg PO Q6H PRN PRN Reason: Headache/Pain, Scale 1-10 Al Hydroxide/Mg Hydroxide (Magnesium Hydrox/Alum Hydrox 30 Ml Oral.Susp) 30 ml PO Q6H PRN PRN Reason: Heartburn/Nausea Aspirin (Aspirin 81 Mg Tab.Chew) 81 mg PO DAILY [facility] Last Admin: 06/15/24 08:17 Dose: 81 mg Furosemide (Furosemide 40 Mg Tablet) 40 mg PO DAILY [facility]; Protocol Last Admin: 06/15/24 08:18 Dose: Not Given Ibuprofen (Ibuprofen 400 Mg Tablet) 400 mg PO Q8H PRN PRN Reason: Mild Pain (Scale Score 1-4) Last Admin: 06/15/24 10:33 Dose: 400 mg Magnesium Hydroxide (Milk Of Magnesia 30 Ml Oral.Susp) 30 ml PO DAILY PRN PRN Reason: Constipation Metoprolol Succinate (Metoprolol Succinate Er 25 Mg Tab.Er.24h) 25 mg PO DAILY [facility]; Protocol Last Admin: 06/15/24 08:18 Dose: Not Given Nicotine (Nicotine 21 Mg Patch.Td24) 21 mg TRANSDERMA DAILY [facility] Last Admin: 06/15/24 10:33 Dose: 21 mg Olanzapine (Olanzapine Odt 10 Mg Tab.Rapdis) 10 mg TRANSLINGU BID [facility] Last Admin: 06/15/24 08:18 Dose: Not Given Spironolactone (Spironolactone 25 Mg Tablet) 25 mg PO DAILY [facility]; Protocol Last Admin: 06/15/24 08:18 Dose: Not Given Trazodone HCl (Trazodone Hcl 50 Mg Tablet) 50 mg PO BEDTIME PRN PRN Reason: Insomnia Home Medications ?Medication ?Instructions ?Recorded ?Confirmed ?Last Taken ?Type aspirin 81 mg chewable tablet 81 mg PO DAILY 06/14/24 06/14/24 Unknown History atorvastatin 40 mg tablet 40 mg PO DAILY 06/14/24 06/14/24 Unknown History furosemide 40 mg tablet 40 mg PO DAILY 06/14/24 06/14/24 06/14/24 History ibuprofen 400 mg tablet 400 mg PO Q8H PRN Mild Pain (Scale 06/14/24 06/14/24 Unknown History Score 1-4) metoprolol succinate 25 mg 25 mg PO DAILY 06/14/24 06/14/24 Unknown History tablet,extended release 24 hr olanzapine 5 mg tablet 5 mg PO BID 06/14/24 06/14/24 Unknown History spironolactone 25 mg tablet 25 mg PO DAILY 06/14/24 06/14/24 Unknown History Physical Exam Vital Signs and Narrative: Vital Signs: Last Vital Signs Temp 97.1 F 06/14/24 20:00 Pulse 81 06/14/24 20:00 Resp 18 06/14/24 20:00 BP 135/76 06/14/24 20:00 Pulse Ox 99 06/14/24 20:00 O2 Del Method Room Air 06/14/24 20:00 BMI result Body Mass Index 26.4 General: AOx1, no acute distress Resp: CTA bilaterally CVS: S1, S2, RRR GI: +BS, NT, no distention Skin: Warm, dry Neuro: Cranial nerves II-XII grossly intact bilaterally. Motor grossly intact bilaterally Extremities: 2+ bilateral pitting edema. Chronic venous stasis dermatitis changes bilaterally. Area of ulceration on posterior aspect of left lower extremity. As pictured below Psych: Irritable, delusional Results Labs 06/14/24 17:25 Labs: Laboratory Results - last 24 hr 06/14/24 06/15/24 17:25 07:52 Anion Gap 14 Estim Creat Clear Calc TNP Estimated GFR > 60 Random Glucose 110 Estimat Average Glucose 97 Hemoglobin A1c % 5.0 Calcium 9.6 Magnesium 2.6 Total Bilirubin 0.4 AST 25 ALT 28 Alkaline Phosphatase 114 Total Protein 8.0 Albumin 4.0 Triglycerides 79 Cholesterol 163 LDL Cholesterol, Calc 112 H HDL Cholesterol 36 L Vitamin B12 296 TSH 1.82 Assessment and Plan (1) Medical clearance for psychiatric admission: Status: Acute Plan Pt is a 63-year-old female with a PMH significant for CAD, hx of [place], HLD, hx of CVA, lower leg edema,?and mood disorder who is admitted to [facility] for increasingly bizarre, paranoid, and delusional behavior. Pt initially presented to [facility] for increasing lower leg edema and weakness in legs bilaterally. During hospital admission pt was found to be delusional, paranoid, and manic. Pt despite many paranoid delusions, including people threatening to kill, make her transgender, or maker sick by giving her medications. Medical consult for admission H&P. Mood disorder Plan as per psychiatry Chronic lower extremity edema with chronic venous stasis dermatitis Pt does not appear to carry a CHF diagnosis Continue furosemide and spironolactone Wound care consult for ulceration Ammonium lactate lotion b.i.d. HTN Continue metoprolol HLD/CAD/hx of CVA Continue aspirin, statin Thank you for allowing us to participate in the care of this patient. Signing off at this time. Please re-consult if any acute complaints or issues arise.
[2024-06-15 20:00] VITALS: BP 117/63; PULSE 73; RESP 18; TEMP 37.1; O2SAT 95
[2024-06-16 08:24] VITALS: BP 100/60; PULSE 69; RESP 16; TEMP 36.4; O2SAT 98
[2024-06-16] MEDS: Nicotine 21 MG PATCH.TD24 TRANSDERMA (08:29)
[2024-06-16] MEDS: Aspirin 81 MG TAB.CHEW PO (08:29)
[2024-06-16] MEDS: Ibuprofen 400 MG TABLET PO ×3 (08:38→22:45)
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
[2024-06-16 11:38] VITALS: BMI 26.4
--- NOTE | 2024-06-16 17:12 | HO.WOUND ---
Wound Consult: Initial 63yr old?female admitted to [facility] on 06/14/24- See progress notes and H&P for detailed history.? Wound consult placed for Left Lower Leg.? Patient agreeable to assessment and photo documentation.? Left Leg Etiology: Venous wound??Present on Admission Wound Bed: marbled wound bed with red and yellow slough Drainage / Odor: serosang Edges: ? irregular and macerated Lizeth wound: ?pink maceration and dry thickened flaking scaling tissue No Induration, Fluctuance or Warmth noted Pain: denies Goals of Treatment: ?Moisture management with durafiber AG Recommendations: 1. Left Posterior Leg - Cleanse with NS moist gauze, pat dry. Apply Ammonium Lactate cream as prescribed. Cover wound bed with Durafiber AG followed by ABD pad or foam dressing. Change every other day. Re-consult wound care Nurse for wound deterioration or wound changes.
[2024-06-16 20:00] VITALS: BP 114/59; PULSE 67; RESP 16; TEMP 36.8; O2SAT 100
[2024-06-16] MEDS: Ammonium Lactate 12 % Lotion 226 GM BOTTLE 1 APPL TOPICAL (22:49)
--- NOTE | 2024-06-17 04:48 | PC.NURSE ---
pt presented to nurses station stating- i want my baby asa now. i'm scared that i have a blood clot in my left leg. i have 10/10 pain but i am not taking any other drugs except ibuprofen left foot is warm to touch and she states she has difficulty moving toes d/t swelling. pt states the pain and swelling is chronic. pt states that she does not want anything stronger than ibuprofen. paraprofessional aide teacher provider dr obando contacted notified 1. pts request for baby asa now instead of 09 2. persistant pain of left leg-can ibuprofen change to Q 6hr 3. renal function reviewed-plan a. 0900 baby asa now b. changed to ibuprofen 400 mg po q 6 hr prn pain. c. ibuprofen 400 mg po given
[2024-06-17] MEDS: Aspirin 81 MG TAB.CHEW PO (05:01)
[2024-06-17] MEDS: Ibuprofen 400 MG TABLET PO ×4 (05:01→22:50)
[2024-06-17 07:46] VITALS: BMI 26.6
[2024-06-17 08:00] VITALS: BP 127/97; PULSE 67; RESP 16; O2SAT 99
[2024-06-17] MEDS: Nicotine 21 MG PATCH.TD24 TRANSDERMA (08:37)
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
[2024-06-17 20:00] VITALS: BP 123/73; PULSE 77; RESP 16; TEMP 36.1; O2SAT 99
[2024-06-17] MEDS: Ammonium Lactate 12 % Lotion 226 GM BOTTLE 1 APPL TOPICAL (22:42)
[2024-06-18 06:21] VITALS: BMI 26.5
[2024-06-18 08:05] VITALS: BP 142/71; PULSE 70; RESP 16; TEMP 36.3; O2SAT 99
[2024-06-18] MEDS: Ibuprofen 400 MG TABLET PO ×2 (08:05→20:17)
[2024-06-18] MEDS: Aspirin 81 MG TAB.CHEW PO (08:06)
[2024-06-18] MEDS: Nicotine 21 MG PATCH.TD24 TRANSDERMA (08:06)
[2024-06-18] MEDS: Ammonium Lactate 12 % Lotion 226 GM BOTTLE 1 APPL TOPICAL ×2 (13:34→20:19)
--- NOTE | 2024-06-18 19:01 | HO.PSYCHPN ---
Subjective Subjective Date of Service: 06/18/24 Reason For Visit: delusional disorder Subjective Notes: Conditional Voluntary and 3 Day Interim History: Pt sleeping through the night. Her legs, especially left one edema increasing but she continues to report that she does not need lasix medication to help with this and CHF. 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 She continues to refuse risperidone. She is visible on the unit, guarded at times. She reports people here are talking about her. She tells this account underwriter she does have a gun in her apartment and does report that she she no longer has a license. She reports is for her own protection. Medication Compliance: No Side effects from medications: No Attending Groups: Intermittent Mental Status Exam Mental Status Exam Narrative: Appearance: wearing hospital gown, rotten front teeth, unkempt hair, in NAD Behavior: guarded, suspicious but opening more as conversation went on Psychomotor: no agitation, no retardation noted. No tremors noted Speech: clear, normal rate, verbose, regular rhythm, spontaneous TP: derailment, loose associations TC: paranoid/persecutory delusions Mood: I'm better Affect: constricted, suspicious SI: denies HI: denies VH/AH: appears internally preoccupied but denies when asked Delusions: complex persecutory and delusional system of senator conspiring to take her buildings away, being able to hack into people's accounts, being monitored by the president of and Jim Maldonado. Does not believe medical doctors are telling the truth and she denies having CHF. Insight/judgment: impaired x 2. Memory/cog: alert, oriented x 3. situation is vague as she thinks she is here due to conspiracy to steal her her buildings. Diagnostics Vital Signs (24Hr): Vital Signs - 24 hr 06/17/24 20:00 06/18/24 08:05 Temperature 97 F 97.4 F Pulse Rate 77 70 Respiratory Rate 16 16 Blood Pressure 123/73 142/71 H Pulse Oximetry 99 99 Oxygen Delivery Method Room Air Room Air BMI result Body Mass Index 26.5 Labs 06/14/24 17:25 Medications Medications Current Medications Acetaminophen (Acetaminophen 325 Mg Tablet) 650 mg PO Q6H PRN PRN Reason: Headache/Pain, Scale 1-10 Al Hydroxide/Mg Hydroxide (Magnesium Hydrox/Alum Hydrox 30 Ml Oral.Susp) 30 ml PO Q6H PRN PRN Reason: Heartburn/Nausea Aspirin (Aspirin 81 Mg Tab.Chew) 81 mg PO DAILY [facility] Last Admin: 06/18/24 08:06 Dose: 81 mg Furosemide (Furosemide 40 Mg Tablet) 40 mg PO DAILY [facility]; Protocol Last Admin: 06/18/24 08:08 Dose: Not Given Ibuprofen (Ibuprofen 400 Mg Tablet) 400 mg PO Q6H PRN PRN Reason: Pain, Moderate(Pain Scale 4-6) Last Admin: 06/18/24 08:05 Dose: 400 mg Lactic Acid (Ammonium Lactate 12 % Lotion 226 Gm Bottle) 1 appl TOPICAL BID [facility]; Protocol Last Admin: 06/18/24 13:34 Dose: 1 appl Magnesium Hydroxide (Milk Of Magnesia 30 Ml Oral.Susp) 30 ml PO DAILY PRN PRN Reason: Constipation Metoprolol Succinate (Metoprolol Succinate Er 25 Mg Tab.Er.24h) 25 mg PO DAILY [facility]; Protocol Last Admin: 06/18/24 08:09 Dose: Not Given Nicotine (Nicotine 21 Mg Patch.Td24) 21 mg TRANSDERMA DAILY [facility] Last Admin: 06/18/24 08:06 Dose: 21 mg Risperidone (Risperidone 1 Mg Tablet) 1 mg PO BID [facility] Last Admin: 06/18/24 08:09 Dose: Not Given Spironolactone (Spironolactone 25 Mg Tablet) 25 mg PO DAILY [facility]; Protocol Last Admin: 06/18/24 08:09 Dose: Not Given Trazodone HCl (Trazodone Hcl 50 Mg Tablet) 50 mg PO BEDTIME PRN PRN Reason: Insomnia Allergies Allergies Allergy/AdvReac Type Severity Reaction Status Date / Time codeine AdvReac Itching Verified 06/14/24 16:07 Assessment & Plan Assessment & Plan (1) Schizoaffective disorder: Status: Acute Code(s): F25.9 - Schizoaffective disorder, unspecified (2) CHF (congestive heart failure): Status: Acute Code(s): I50.9 - Heart failure, unspecified Assessment and Plan: newly diagnosed at [facility] 06/09/24- started on lasix and spironolactone ECHO 11/24/2023- LV systolic function low normal LVEF 50-55%; Basal inferior wall hypokinetic, dilated left atrium, mild-moderate mitral regurgitation. 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 Plan Ms. He is a 63 year-old woman with hx of paranoid/persecutory delusions and some grandiose delusions. She initially was assessed by [facility] in the community and sent to [facility]. She presented with bilateral lower edema, admitted medically and found to have exacerbation of CHF. She presented with paranoid and persecutory delusions, not believing what doctors are telling her about her medical diagnoses and refusing treatment on the basis of delusional believes. It also appears that there has been more concern in terms of her ability to care for herself, and on 05/21/24 per [facility] ED records, was brought by fire dept as apartment had no heat and pt noted to have LE edema. Pt reports this is not true and it was the fire department that boost heater intentionally. We discussed risks, benefits and alternative treatment options, she agrees to continue olanzapine, she declines cardiac medications stating she does not have any problems with her heart. PLAN 06/16 will d/c olanzapine, change to risperidone 1mg po BID. it will be offered, pt can declined as not court mandated. 06/17 continues to decline medications for heart failure, psychosis. additional collateral information gathered related to state of her apartment, ability to care for herself. 06/18 declines medication, swelling of legs worsening due to pt not taking lasix. Reason for continued inpatient stay Substantial Risk for: inability to function Time Spent With Patient Time: Total time managing care of this patient today ____ minutes.
[2024-06-18 20:00] VITALS: BP 137/68; PULSE 59; RESP 18; TEMP 36.3; O2SAT 100
[2024-06-19 05:26] VITALS: BMI 26.4
[2024-06-19 07:54] VITALS: BP 139/71; PULSE 66; RESP 18; TEMP 36.9; O2SAT 100
[2024-06-19] MEDS: Aspirin 81 MG TAB.CHEW PO (08:23)
[2024-06-19] MEDS: Ibuprofen 400 MG TABLET PO ×3 (08:23→20:27)
[2024-06-19] MEDS: Nicotine 21 MG PATCH.TD24 TRANSDERMA (08:23)
--- NOTE | 2024-06-19 09:36 | PC.NURSE ---
Refused all meds except for ASA and nicotine patch. Maria Elena Zuluaga NP notified.
--- NOTE | 2024-06-19 18:16 | P.PNPSI_ITS ---
Subjective Subjective Date of Service: 06/19/24 Reason For Visit: delusional disorder Subjective Notes: Conditional Voluntary and 3 Day Interim History: Pt slept through the night. continues to complain about leg swelling but will not agree to take lasix stating that she does not have a heart condition as she was told at [facility]. Pt reminded that hospitalist here also agrees with dx and recommends lasix, however, pt continues to decline. Doppler completed on 06/18 to rule out DVT. Pt also explained that as swelling gets worse, wound will reopen. Diagnostics Vital Signs (24Hr): Vital Signs - 24 hr 06/18/24 20:00 06/19/24 07:54 Temperature 97.3 F 98.5 F Pulse Rate 59 66 Respiratory Rate 18 18 Blood Pressure 137/68 139/71 Pulse Oximetry 100 100 Oxygen Delivery Method Room Air Room Air BMI result Body Mass Index 26.4 Labs 06/14/24 17:25 Medications Medications Current Medications Acetaminophen (Acetaminophen 325 Mg Tablet) 650 mg PO Q6H PRN PRN Reason: Headache/Pain, Scale 1-10 Al Hydroxide/Mg Hydroxide (Magnesium Hydrox/Alum Hydrox 30 Ml Oral.Susp) 30 ml PO Q6H PRN PRN Reason: Heartburn/Nausea Aspirin (Aspirin 81 Mg Tab.Chew) 81 mg PO DAILY [facility] Last Admin: 06/19/24 08:23 Dose: 81 mg Furosemide (Furosemide 40 Mg Tablet) 40 mg PO DAILY [facility]; Protocol Last Admin: 06/19/24 08:26 Dose: Not Given Ibuprofen (Ibuprofen 400 Mg Tablet) 400 mg PO Q6H PRN PRN Reason: Pain, Moderate(Pain Scale 4-6) Last Admin: 06/19/24 14:27 Dose: 400 mg Lactic Acid (Ammonium Lactate 12 % Lotion 226 Gm Bottle) 1 appl TOPICAL BID [facility]; Protocol Last Admin: 06/19/24 16:00 Dose: Not Given Magnesium Hydroxide (Milk Of Magnesia 30 Ml Oral.Susp) 30 ml PO DAILY PRN PRN Reason: Constipation Metoprolol Succinate (Metoprolol Succinate Er 25 Mg Tab.Er.24h) 25 mg PO DAILY [facility]; Protocol Last Admin: 06/19/24 08:26 Dose: Not Given Nicotine (Nicotine 21 Mg Patch.Td24) 21 mg TRANSDERMA DAILY [facility] Last Admin: 06/19/24 08:23 Dose: 21 mg Risperidone (Risperidone 1 Mg Tablet) 1 mg PO BID [facility] Last Admin: 06/19/24 08:26 Dose: Not Given Spironolactone (Spironolactone 25 Mg Tablet) 25 mg PO DAILY [facility]; Protocol Last Admin: 06/19/24 08:28 Dose: Not Given Trazodone HCl (Trazodone Hcl 50 Mg Tablet) 50 mg PO BEDTIME PRN PRN Reason: Insomnia Allergies Allergies Allergy/AdvReac Type Severity Reaction Status Date / Time codeine AdvReac Itching Verified 06/14/24 16:07 Assessment & Plan Assessment & Plan (1) Schizoaffective disorder: Status: Acute Code(s): F25.9 - Schizoaffective disorder, unspecified (2) CHF (congestive heart failure): Status: Acute Code(s): I50.9 - Heart failure, unspecified Assessment and Plan: newly diagnosed at [place] 06/09/24- started on lasix and spironolactone ECHO 11/24/2023- LV systolic function low normal LVEF 50-55%; Basal inferior wall hypokinetic, dilated left atrium, mild-moderate mitral regurgitation. 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 Plan Ms. He is a 63 year-old woman with hx of paranoid/persecutory delusions and some grandiose delusions. She initially was assessed by [facility] in the community and sent to [place]. She presented with bilateral lower edema, admitted medically and found to have exacerbation of CHF. She presented with paranoid and persecutory delusions, not believing what doctors are telling her about her medical diagnoses and refusing treatment on the basis of delusional believes. It also appears that there has been more concern in terms of her ability to care for herself, and on 05/21/24 per [facility] ED records, was brought by fire dept as apartment had no heat and pt noted to have LE edema. Pt reports this is not true and it was the fire department that boost heater intentionally. We discussed risks, benefits and alternative treatment options, she agrees to continue olanzapine, she declines cardiac medications stating she does not have any problems with her heart. PLAN 06/16 will d/c olanzapine, change to risperidone 1mg po BID. it will be offered, pt can declined as not court mandated. 06/17 continues to decline medications for heart failure, psychosis. additional collateral information gathered related to state of her apartment, ability to care for herself. 06/18 declines medication, swelling of legs worsening due to pt not taking lasix. 06/19 continues to decline medication for HF, swelling of legs worsening. Reason for continued inpatient stay Substantial Risk for: inability to function Time Spent With Patient Time: Total time managing care of this patient today ____ minutes.
[2024-06-19 20:00] VITALS: BP 152/72; PULSE 65; TEMP 36.3; O2SAT 100
[2024-06-19] MEDS: Ammonium Lactate 12 % Lotion 226 GM BOTTLE 1 APPL TOPICAL (20:27)
[2024-06-20 05:07] VITALS: BMI 26.8
[2024-06-20 08:41] VITALS: BP 142/73; PULSE 66; RESP 16; TEMP 36.7; O2SAT 92
[2024-06-20] MEDS: Aspirin 81 MG TAB.CHEW PO (08:55)
[2024-06-20] MEDS: Furosemide 40 MG TABLET PO (08:55)
[2024-06-20] MEDS: Ibuprofen 400 MG TABLET PO ×2 (09:01→20:39)
[2024-06-20] MEDS: Nicotine 21 MG PATCH.TD24 TRANSDERMA (09:03)
--- NOTE | 2024-06-20 12:15 | P.PNPSI_ITS ---
Subjective Subjective Date of Service: 06/20/24 Reason For Visit: delusional disorder Subjective Notes: Conditional Voluntary and 3 Day Interim History: Pt slept through the night. Leg continues to get worse in terms of edema, weight gain in one day of 1 Kg. Pt did take one time dose of lasix, not spironolactone. Continues to present with delusions related to doctors at [facility] lying about her having HCF, will not accept that internal doctor here also recommends lasix. 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 Review of Systems Review of Systems Pt denies chest pain. No SOB. Unsteady gait. She reports dizziness. Mental Status Exam Mental Status Exam Narrative: Appearance: wearing hospital gown, rotten front teeth, unkempt hair, in NAD Behavior: guarded, suspicious but opening more as conversation went on Psychomotor: no agitation, no retardation noted. No tremors noted Speech: clear, normal rate, verbose, regular rhythm, spontaneous TP: derailment, loose associations TC: paranoid/persecutory delusions Mood: I'm better Affect: constricted, suspicious SI: denies HI: denies VH/AH: appears internally preoccupied but denies when asked Delusions: complex persecutory and delusional system of senator conspiring to take her buildings away, being able to hack into people's accounts, being monitored by the president of and [employer]. Does not believe medical doctors are telling the truth and she denies having CHF. Insight/judgment: impaired x 2. Memory/cog: alert, oriented x 3. situation is vague as she thinks she is here due to conspiracy to steal her her buildings. Diagnostics Vital Signs (24Hr): Vital Signs - 24 hr 06/19/24 20:00 06/20/24 08:41 Temperature 97.4 F 98.1 F Pulse Rate 65 66 Respiratory Rate 16 Blood Pressure 152/72 H 142/73 H Pulse Oximetry 100 92 Oxygen Delivery Method Room Air Room Air BMI result Body Mass Index 26.8 Labs 06/14/24 17:25 Medications Medications Current Medications Acetaminophen (Acetaminophen 325 Mg Tablet) 650 mg PO Q6H PRN PRN Reason: Headache/Pain, Scale 1-10 Al Hydroxide/Mg Hydroxide (Magnesium Hydrox/Alum Hydrox 30 Ml Oral.Susp) 30 ml PO Q6H PRN PRN Reason: Heartburn/Nausea Aspirin (Aspirin 81 Mg Tab.Chew) 81 mg PO DAILY [facility] Last Admin: 06/20/24 08:55 Dose: 81 mg Furosemide (Furosemide 40 Mg Tablet) 40 mg PO DAILY [facility]; Protocol Last Admin: 06/20/24 08:55 Dose: 40 mg Ibuprofen (Ibuprofen 400 Mg Tablet) 400 mg PO Q6H PRN PRN Reason: Pain, Moderate(Pain Scale 4-6) Last Admin: 06/20/24 09:01 Dose: 400 mg Lactic Acid (Ammonium Lactate 12 % Lotion 226 Gm Bottle) 1 appl TOPICAL BID [facility]; Protocol Last Admin: 06/20/24 09:46 Dose: Not Given Magnesium Hydroxide (Milk Of Magnesia 30 Ml Oral.Susp) 30 ml PO DAILY PRN PRN Reason: Constipation Metoprolol Succinate (Metoprolol Succinate Er 25 Mg Tab.Er.24h) 25 mg PO DAILY [facility]; Protocol Last Admin: 06/20/24 09:02 Dose: Not Given Nicotine (Nicotine 21 Mg Patch.Td24) 21 mg TRANSDERMA DAILY [facility] Last Admin: 06/20/24 09:03 Dose: 21 mg Risperidone (Risperidone 1 Mg Tablet) 1 mg PO BID [facility] Last Admin: 06/20/24 09:02 Dose: Not Given Spironolactone (Spironolactone 25 Mg Tablet) 25 mg PO DAILY [facility]; Protocol Last Admin: 06/20/24 09:02 Dose: Not Given Trazodone HCl (Trazodone Hcl 50 Mg Tablet) 50 mg PO BEDTIME PRN PRN Reason: Insomnia Allergies Allergies Allergy/AdvReac Type Severity Reaction Status Date / Time codeine AdvReac Itching Verified 06/14/24 16:07 Assessment & Plan Assessment & Plan (1) Schizoaffective disorder: Status: Acute Code(s): F25.9 - Schizoaffective disorder, unspecified (2) CHF (congestive heart failure): Status: Acute Code(s): I50.9 - Heart failure, unspecified Assessment and Plan: newly diagnosed at [place] 06/09/24- started on lasix and spironolactone ECHO 11/24/2023- LV systolic function low normal LVEF 50-55%; Basal inferior wall hypokinetic, dilated left atrium, mild-moderate mitral regurgitation. 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 Plan Ms. He is a 63 year-old woman with hx of paranoid/persecutory delusions and some grandiose delusions. She initially was assessed by [facility] in the community and sent to [place]. She presented with bilateral lower edema, admitted medically and found to have exacerbation of CHF. She presented with paranoid and persecutory delusions, not believing what doctors are telling her about her medical diagnoses and refusing treatment on the basis of delusional believes. It also appears that there has been more concern in terms of her ability to care for herself, and on 05/21/24 per [facility] ED records, was brought by fire dept as apartment had no heat and pt noted to have LE edema. Pt reports this is not true and it was the fire department that boost heater intentionally. We discussed risks, benefits and alternative treatment options, she agrees to continue olanzapine, she declines cardiac medications stating she does not have any problems with her heart. PLAN 06/16 will d/c olanzapine, change to risperidone 1mg po BID. it will be offered, pt can declined as not court mandated. 06/17 continues to decline medications for heart failure, psychosis. additional collateral information gathered related to state of her apartment, ability to care for herself. 06/18 declines medication, swelling of legs worsening due to pt not taking lasix. 06/19 continues to decline medication for HF, swelling of legs worsening. 06/20 continue tx. weight gain of 1kg, Reason for continued inpatient stay Substantial Risk for: inability to function Time Spent With Patient Time: Total time managing care of this patient today ____ minutes.
[2024-06-20 20:00] VITALS: BP 149/78; PULSE 60; RESP 16; TEMP 36.1; O2SAT 99
[2024-06-20] MEDS: Ammonium Lactate 12 % Lotion 226 GM BOTTLE 1 APPL TOPICAL (22:13)
[2024-06-21] MEDS: Ibuprofen 400 MG TABLET PO ×3 (04:43→19:08)
[2024-06-21 06:33] VITALS: BMI 26.7
[2024-06-21 08:00] VITALS: BP 141/68; PULSE 72; RESP 16; TEMP 36.2; O2SAT 99
[2024-06-21] MEDS: Nicotine 21 MG PATCH.TD24 TRANSDERMA (08:51)
[2024-06-21] MEDS: Aspirin 81 MG TAB.CHEW PO (08:51)
[2024-06-21] MEDS: Furosemide 40 MG TABLET PO (08:54)
--- NOTE | 2024-06-21 10:10 | HO.PSYCHPN ---
Subjective Subjective Date of Service: 06/21/24 Reason For Visit: delusional disorder Subjective Notes: 3 Day Interim History: Pt slept through the night. 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 She did take lasix. Also educated that spironolactone helps for fluid retention. She said she will not take that. She continues to refuse risperidone. Review of Systems Review of Systems Pt denies chest pain. No SOB. Unsteady gait. She reports dizziness. Mental Status Exam Mental Status Exam Narrative: Appearance: wearing hospital gown, rotten front teeth, unkempt hair, in NAD Behavior: guarded, suspicious but opening more as conversation went on Psychomotor: no agitation, no retardation noted. No tremors noted Speech: clear, normal rate, verbose, regular rhythm, spontaneous TP: derailment, loose associations TC: paranoid/persecutory delusions Mood: I'm better Affect: constricted, suspicious SI: denies HI: denies VH/AH: appears internally preoccupied but denies when asked Delusions: complex persecutory and delusional system of conspiring to take her buildings away, being able to hack into people's accounts, being monitored by the president of [employer] and Jim Maldonado. Does not believe medical doctors are telling the truth and she denies having CHF. Insight/judgment: impaired x 2. Memory/cog: alert, oriented x 3. situation is vague as she thinks she is here due to conspiracy to steal her her buildings. Diagnostics Vital Signs (24Hr): Vital Signs - 24 hr 06/20/24 20:00 Temperature 97 F Pulse Rate 60 Respiratory Rate 16 Blood Pressure 149/78 H Pulse Oximetry 99 Oxygen Delivery Method Room Air BMI result Body Mass Index 26.7 Labs 06/21/24 17:59 Medications Medications Current Medications Acetaminophen (Acetaminophen 325 Mg Tablet) 650 mg PO Q6H PRN PRN Reason: Headache/Pain, Scale 1-10 Al Hydroxide/Mg Hydroxide (Magnesium Hydrox/Alum Hydrox 30 Ml Oral.Susp) 30 ml PO Q6H PRN PRN Reason: Heartburn/Nausea Aspirin (Aspirin 81 Mg Tab.Chew) 81 mg PO DAILY [facility] Last Admin: 06/21/24 08:51 Dose: 81 mg Furosemide (Furosemide 40 Mg Tablet) 40 mg PO DAILY [facility]; Protocol Last Admin: 06/21/24 08:54 Dose: 40 mg Ibuprofen (Ibuprofen 400 Mg Tablet) 400 mg PO Q6H PRN PRN Reason: Pain, Moderate(Pain Scale 4-6) Last Admin: 06/21/24 04:43 Dose: 400 mg Lactic Acid (Ammonium Lactate 12 % Lotion 226 Gm Bottle) 1 appl TOPICAL BID [facility]; Protocol Last Admin: 06/21/24 08:56 Dose: Not Given Magnesium Hydroxide (Milk Of Magnesia 30 Ml Oral.Susp) 30 ml PO DAILY PRN PRN Reason: Constipation Metoprolol Succinate (Metoprolol Succinate Er 25 Mg Tab.Er.24h) 25 mg PO DAILY [facility]; Protocol Last Admin: 06/21/24 08:57 Dose: Not Given Nicotine (Nicotine 21 Mg Patch.Td24) 21 mg TRANSDERMA DAILY [facility] Last Admin: 06/21/24 08:51 Dose: 21 mg Risperidone (Risperidone 1 Mg Tablet) 1 mg PO BID [facility] Last Admin: 06/21/24 08:57 Dose: Not Given Spironolactone (Spironolactone 25 Mg Tablet) 25 mg PO DAILY [facility]; Protocol Last Admin: 06/21/24 08:57 Dose: Not Given Trazodone HCl (Trazodone Hcl 50 Mg Tablet) 50 mg PO BEDTIME PRN PRN Reason: Insomnia Allergies Allergies Allergy/AdvReac Type Severity Reaction Status Date / Time codeine AdvReac Itching Verified 06/14/24 16:07 Assessment & Plan Assessment & Plan (1) Schizoaffective disorder: Status: Acute Code(s): F25.9 - Schizoaffective disorder, unspecified (2) CHF (congestive heart failure): Status: Acute Code(s): I50.9 - Heart failure, unspecified Assessment and Plan: newly diagnosed at [place] 06/09/24- started on lasix and spironolactone ECHO 11/24/2023- LV systolic function low normal LVEF 50-55%; Basal inferior wall hypokinetic, dilated left atrium, mild-moderate mitral regurgitation. 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 Plan Ms. He is a 63 year-old woman with hx of paranoid/persecutory delusions and some grandiose delusions. She initially was assessed by [facility] in the community and sent to [place]. She presented with bilateral lower edema, admitted medically and found to have exacerbation of CHF. She presented with paranoid and persecutory delusions, not believing what doctors are telling her about her medical diagnoses and refusing treatment on the basis of delusional believes. It also appears that there has been more concern in terms of her ability to care for herself, and on 05/21/24 per [facility] ED records, was brought by fire dept as apartment had no heat and pt noted to have LE edema. Pt reports this is not true and it was the fire department that boost heater intentionally. We discussed risks, benefits and alternative treatment options, she agrees to continue olanzapine, she declines cardiac medications stating she does not have any problems with her heart. PLAN 06/16 will d/c olanzapine, change to risperidone 1mg po BID. it will be offered, pt can declined as not court mandated. 06/17 continues to decline medications for heart failure, psychosis. additional collateral information gathered related to state of her apartment, ability to care for herself. 06/18 declines medication, swelling of legs worsening due to pt not taking lasix. 06/19 continues to decline medication for HF, swelling of legs worsening. 06/20 continue tx. weight gain of 1kg, 06/21 continue tx, monitor daily weights, encourage medications. Reason for continued inpatient stay Substantial Risk for: inability to function Time Spent With Patient Time: Total time managing care of this patient today ____ minutes.
[2024-06-21 18:29] LABS: Alanine Aminotransferase 17 U/L (0-31); Albumin Level 3.9 g/dL (3.5-5.0); Alkaline Phosphatase 118 U/L (39-117); Anion Gap 13 (12-20); Aspartate Amino Transferase 18 U/L (5-31); Blood Urea Nitrogen 20 mg/dL (9-16); Calcium 9.4 mg/dL (8.4-10.2); Carbon Dioxide 28 mmol/L (22-29); Chloride 99 mmol/L (96-108); Creatinine Clr Calc Pharmacy 92.1; Estimated Glomerular Filt Rate > 60; Glucose Random 106 mg/dL (60-115); Potassium 4.2 mmol/L (3.3-5.1); Sodium 136 mmol/L (135-145); Total Protein 7.5 g/dL (6.5-8.0)
[2024-06-21 18:46] LABS: Bilirubin Total 0.4 mg/dL (0.0-1.0)
[2024-06-21 20:00] VITALS: BP 119/66; PULSE 87; RESP 20; TEMP 35.5; O2SAT 97
[2024-06-21] MEDS: Ammonium Lactate 12 % Lotion 226 GM BOTTLE 1 APPL TOPICAL (22:03)
[2024-06-22 06:34] VITALS: BMI 26.9
[2024-06-22 08:00] VITALS: BP 136/59; PULSE 63; RESP 16
[2024-06-22] MEDS: Furosemide 40 MG TABLET PO (08:23)
[2024-06-22] MEDS: Aspirin 81 MG TAB.CHEW PO (08:24)
[2024-06-22] MEDS: Nicotine 21 MG PATCH.TD24 TRANSDERMA (08:24)
[2024-06-22] MEDS: Ibuprofen 400 MG TABLET PO ×2 (08:24→16:40)
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
[2024-06-22 19:52] VITALS: BP 123/63; PULSE 82; RESP 16; TEMP 36.8; O2SAT 96
[2024-06-22 19:53] VITALS: BP 123/63; PULSE 82; RESP 14; TEMP 36.8; O2SAT 96
[2024-06-23 06:30] VITALS: BMI 27.0
[2024-06-23] MEDS: Ibuprofen 400 MG TABLET PO (06:37)
[2024-06-23 08:00] VITALS: BP 123/67; PULSE 67; RESP 16; TEMP 36.8; O2SAT 99
[2024-06-23] MEDS: Nicotine 21 MG PATCH.TD24 TRANSDERMA (08:13)
[2024-06-23] MEDS: Aspirin 81 MG TAB.CHEW PO (08:14)
--- NOTE | 2024-06-23 09:47 | P.EN_ITS ---
Event Note Date of Service: 06/23/24 Event Note: 63-year-old female with history of CAD, history of NE, hyperlipidemia, history of CVA, chronic bilateral lower extremity edema, and mood disorder admitted to [facility]ry with consult placed hospitalist service for evaluation of right knee pain. The patient requires redirection, but overall is able to give reasonable history. She tells me that in 2000, she had a meniscus repair of the right knee but did not undergo TKA. She reports she has chronic pain but over the last few days has gotten significantly worse with swelling. She is able to ambulate. Denies falls or other injury. On exam, there is notable moderate swelling/edema to the lateral prepatellar region measuring about 3 cm as well as generalized swelling over the lateral aspect of the right knee. She does have full range of motion but has positive right-sided J Carlos test. There is diffuse tenderness to palpation, greatest over the lateral aspect of the knee. There is also 1+ right lower extremity edema. She is noted to have significant swelling of the left lower extremity with 1+ edema and warmth and pink coloration. There is a wound to the posterior Left lower leg covered durafiber alginate and non pressure dressing. There is some yellow discoloration likely from the AG, but no definite slough. The wound bed is moist but overall clean appearing, without any definite purulent draining. There is no significant erythema. No fevers, vitals stable. However, swelling d oes appear increased in size compared to photos from wound note 06/16 and hospitalist consult from 06/15. Continue ammonium lactate. Check CBC, ESR, CRP. May consider further imaging given increased swelling compared to prior images pending reseults. For now, check venous duplex LLE. The RN and she told me that she refused her lasix this morning as she experience lightheaded yesterday evening and required 2 person assist with ambulation which is not her baseline. This is not reported in any nursing notes and RN today did not receive report of this in sign out. VS last night without any hypotension. Discussed with RN, if this does recur recommend orthostatic VS and to reach out to hospitalist service if needed. Did recommend to patient that she take the lasix especially given the edema that is present as been causing her discomfort. Can also try compression stockings if patient agreeable and recommend leg elevation and low sodium diet. Will continue following for results. Time Spent With Patient Time: Total time managing care of this patient today ____ minutes.
[2024-06-23 12:33] LABS: MANUAL DIFF FLAG NO
[2024-06-23 12:47] LABS: Basophils Percent Auto 0.5 % (0-2); Eosinophils Absolute Auto 0.1 X10*3/uL (0.0-0.4); Eosinophils Percent Auto 1.7 % (0-4); Hematocrit 36.4 % (37.0-47.0); Hemoglobin 12.4 g/dl (12.0-16.0); Imm Gran Abs Auto 0.02 X10*3/uL (0.00-0.03); Imm Gran Pct Auto 0.3 % (0.0-0.4); Lymphocytes Absolute Auto 2.1 X10*3/uL (1.2-4.9); Mean Corpuscular HGB Conc 34.1 g/dl (31.0-35.0); Mean Corpuscular Hemoglobin 31.7 pg (27.0-33.0); Mean Corpuscular Volume 93.1 fL (80.0-98.0); Mean Platelet Volume 9.6 fL (9.4-12.3); Monocytes Absolute Auto 0.4 X10*3/uL (0.1-1.2); Monocytes Percent Auto 5.8 % (2-11); Neutrophils Absolute Auto 3.9 x10*3/uL (2.0-8.3); Neutrophils Percent Auto 59.7 % (45-73); Platelet Count 281 X10*3/uL (160-400); Red Blood Count 3.91 X10*6/uL (4.20-5.50); Red Cell Distribution Width 12.3 % (11.0-16.0); White Blood Count 6.5 X10*3/uL (4.8-10.8)
[2024-06-23 13:18] LABS: Erythrocyte Sedimentation Rate 10 MM/HR (0-20)
[2024-06-23] MEDS: traMADoL HCL 50 MG TABLET 25 MG PO ×2 (17:10→21:23)
[2024-06-23 17:30] LABS: C Reactive Protein < 0.10 mg/dL (< or = 0.50)
[2024-06-23 20:00] VITALS: BP 130/70; PULSE 69; RESP 15; TEMP 36.8; O2SAT 100
[2024-06-24] MEDS: traMADoL HCL 50 MG TABLET 25 MG PO ×2 (06:04→11:17)
[2024-06-24 08:00] VITALS: BP 115/60; PULSE 69; RESP 16; O2SAT 99
[2024-06-24] MEDS: Aspirin 81 MG TAB.CHEW PO (09:12)
[2024-06-24] MEDS: Nicotine 21 MG PATCH.TD24 TRANSDERMA (09:12)
[2024-06-24] MEDS: traMADoL HCL 50 MG TABLET PO ×2 (16:13→21:31)
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
[2024-06-24 19:37] VITALS: BP 118/67; PULSE 67; RESP 16; TEMP 36.4; O2SAT 99
[2024-06-24] MEDS: risperiDONE 1 MG TABLET PO (20:29)
[2024-06-25] MEDS: Aspirin 81 MG TAB.CHEW PO (06:04)
[2024-06-25] MEDS: traMADoL HCL 50 MG TABLET PO ×3 (06:05→21:20)
[2024-06-25] MEDS: risperiDONE 1 MG TABLET PO (06:06)
[2024-06-25 06:37] VITALS: BMI 27.1
[2024-06-25 08:00] VITALS: BP 92/50; PULSE 72; RESP 18; TEMP 36.2; O2SAT 97; BMI 27.1
[2024-06-25] MEDS: Nicotine 21 MG PATCH.TD24 TRANSDERMA (08:41)
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
--- NOTE | 2024-06-25 18:36 | PM.EVENT ---
Event Note Date of Service: 06/25/24 Event Note: Pt is a 63-year-old female with a PMH significant for CAD, hx of WA, HLD, hx of CVA, lower leg edema, and mood disorder who was admitted to [facility] with hospitalist consult for hypotension, dizziness, and evaluation of CHF maintenance medications. Pt initially presented to [facility] with lower leg edema and seen by Cardiology who said symptoms were ?suggestive of possible heart failure with preserved LVEF . However no echocardiogram was done at that time as it would not change therapy. Cardiology suggested at that time pt be discharged on maintenance therapy of 20 mg Lasix and 25 mg spironolactone, as well as metoprolol 25 mg daily. While on the unit pt has been mostly noncompliant with these medications, refusing to take them on multiple occasions, including the last 2 days. Staff report that when pt does agree to take Lasix she will subsequently complain of lightheadedness. Today patient's BP was noted to be 92/50, and the pt had again refused her CHF medications. Review of records indicates pt has mostly been normotensive or hypertensive during stay here. Of note, pt was discharged on furosemide 40 mg p.o. instead of cardiology's recommendations 20 mg p.o.. Plan: Will reduced furosemide to 20 mg p.o. daily Hold spironolactone Continue metoprolol 25 mg daily Monitor BP closely Thank you for allowing us to participate in the care of this pt. We will continue to follow along for now to monitor BP. Please re-consult if any acute issue or need arises. Time Spent With Patient Time: Total time managing care of this patient today ____ minutes.
[2024-06-25 20:00] VITALS: BP 121/69; PULSE 77; RESP 18; TEMP 36.6; O2SAT 98
[2024-06-26 08:00] VITALS: BP 118/65; PULSE 79; RESP 18; TEMP 36.4; O2SAT 95; BMI 27.2
[2024-06-26] MEDS: Aspirin 81 MG TAB.CHEW PO (08:26)
[2024-06-26] MEDS: Nicotine 21 MG PATCH.TD24 TRANSDERMA (08:26)
[2024-06-26 08:28] VITALS: BP 118/65
[2024-06-26 08:29] VITALS: BP 118/65; PULSE 79
[2024-06-26] MEDS: traMADoL HCL 50 MG TABLET PO ×3 (08:32→20:48)
[2024-06-26] MEDS: Ammonium Lactate 12 % Lotion 226 GM BOTTLE 1 APPL TOPICAL (08:33)
[2024-06-26 20:00] VITALS: BP 131/62; PULSE 75; RESP 18; TEMP 36.9; O2SAT 98
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
[2024-06-27 07:40] VITALS: BMI 27.3
[2024-06-27 08:07] VITALS: BP 125/63; PULSE 94; RESP 16; TEMP 36.4; O2SAT 98
[2024-06-27] MEDS: Nicotine 21 MG PATCH.TD24 TRANSDERMA (08:10)
[2024-06-27] MEDS: traMADoL HCL 50 MG TABLET PO ×3 (08:11→20:51)
[2024-06-27] MEDS: Aspirin 81 MG TAB.CHEW PO (08:11)
[2024-06-27] MEDS: Ammonium Lactate 12 % Lotion 226 GM BOTTLE 1 APPL TOPICAL ×2 (08:11→20:52)
[2024-06-27 20:00] VITALS: BP 173/80; PULSE 88; RESP 16; TEMP 36.4; O2SAT 100
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
[2024-06-28 08:10] VITALS: BP 121/66; PULSE 81; RESP 16; TEMP 36.2; O2SAT 98
[2024-06-28] MEDS: Nicotine 21 MG PATCH.TD24 TRANSDERMA (08:27)
[2024-06-28] MEDS: traMADoL HCL 50 MG TABLET PO ×2 (08:28→21:04)
[2024-06-28] MEDS: Aspirin 81 MG TAB.CHEW PO (08:28)
[2024-06-28] MEDS: Ammonium Lactate 12 % Lotion 226 GM BOTTLE 1 APPL TOPICAL ×2 (08:28→21:07)
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
[2024-06-28 20:00] VITALS: BP 141/84; PULSE 80; RESP 20; TEMP 36.7; O2SAT 100
[2024-06-29] MEDS: traMADoL HCL 50 MG TABLET PO ×3 (05:58→22:33)
[2024-06-29 07:50] VITALS: BP 125/76; PULSE 71; RESP 18; TEMP 36.6; O2SAT 97
[2024-06-29 08:00] VITALS: BMI 27.3
[2024-06-29] MEDS: Nicotine 21 MG PATCH.TD24 TRANSDERMA (08:16)
[2024-06-29] MEDS: Aspirin 81 MG TAB.CHEW PO (08:17)
[2024-06-29] MEDS: Ammonium Lactate 12 % Lotion 226 GM BOTTLE 1 APPL TOPICAL ×2 (08:17→22:32)
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
[2024-06-29 19:59] VITALS: BP 133/76; PULSE 63; TEMP 36.6; O2SAT 100
[2024-06-30 05:22] VITALS: BMI 27.5
[2024-06-30 07:55] VITALS: BP 128/78; PULSE 63; RESP 18; TEMP 36.7; O2SAT 99
[2024-06-30 08:00] VITALS: BMI 27.5
[2024-06-30] MEDS: Aspirin 81 MG TAB.CHEW PO (08:04)
[2024-06-30] MEDS: Nicotine 21 MG PATCH.TD24 TRANSDERMA (08:04)
[2024-06-30] MEDS: Ammonium Lactate 12 % Lotion 226 GM BOTTLE 1 APPL TOPICAL ×2 (08:06→21:54)
[2024-06-30] MEDS: traMADoL HCL 50 MG TABLET PO ×3 (08:06→21:53)
[2024-06-30 18:53] LABS: B Type Natriuretic Peptide 136 pg/mL (<100)
[2024-06-30 20:00] VITALS: BP 129/58; PULSE 77; RESP 16; TEMP 36.6; O2SAT 99
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
[2024-07-01 06:01] VITALS: BMI 27.3
[2024-07-01 07:55] VITALS: BP 145/73; PULSE 70; RESP 18; TEMP 36.5; O2SAT 99
[2024-07-01 08:00] VITALS: BMI 27.3
[2024-07-01] MEDS: Nicotine 21 MG PATCH.TD24 TRANSDERMA (08:15)
[2024-07-01] MEDS: Aspirin 81 MG TAB.CHEW PO (08:16)
[2024-07-01] MEDS: Ammonium Lactate 12 % Lotion 226 GM BOTTLE 1 APPL TOPICAL ×2 (08:26→21:07)
[2024-07-01] MEDS: traMADoL HCL 50 MG TABLET PO ×3 (10:09→22:25)
--- NOTE | 2024-07-01 10:25 | P.PNPSI_ITS ---
Subjective Subjective Date of Service: 07/01/24 Reason For Visit: delusional disorder Subjective Notes: Conditional Voluntary Interim History: Pt slept all night. She continues to decline medications for fluid retention, heart failure. left leg getting worse in terms of edema, now is red and warmth to touch. 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 Review of Systems Review of Systems pain mgt Mental Status Exam Mental Status Exam Narrative: Appearance: wearing hospital gown, rotten front teeth, unkempt hair, in NAD Behavior: guarded, suspicious but opening more as conversation went on Psychomotor: no agitation, no retardation noted. 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 Does not believe medical doctors are telling the truth and she denies having CHF. Insight/judgment: impaired x 2. Memory/cog: alert, oriented x 3. situation is vague as she thinks she is here due to conspiracy to steal her her buildings. 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 Suprapatellar bursa joint effusion, small to moderate volume. Electronically signed by: Madhu Perez MD 06/23/2024 03:43 PM EDT Medications Medications Current Medications Acetaminophen (Acetaminophen 325 Mg Tablet) 650 mg PO Q6H PRN PRN Reason: Headache/Pain, Scale 1-10 Al Hydroxide/Mg Hydroxide (Magnesium Hydrox/Alum Hydrox 30 Ml Oral.Susp) 30 ml PO Q6H PRN PRN Reason: Heartburn/Nausea Aspirin (Aspirin 81 Mg Tab.Chew) 81 mg PO DAILY [facility] Last Admin: 07/01/24 08:16 Dose: 81 mg Furosemide (Furosemide 20 Mg Tablet) 20 mg PO DAILY [facility]; Protocol Last Admin: 07/01/24 08:18 Dose: Not Given Lactic Acid (Ammonium Lactate 12 % Lotion 226 Gm Bottle) 1 appl TOPICAL BID [facility]; Protocol Last Admin: 07/01/24 08:26 Dose: 1 appl Magnesium Hydroxide (Milk Of Magnesia 30 Ml Oral.Susp) 30 ml PO DAILY PRN PRN Reason: Constipation Metoprolol Succinate (Metoprolol Succinate Er 12.5 Mg Halftab.Er.24h) 12.5 mg PO DAILY [facility]; Protocol Last Admin: 07/01/24 08:25 Dose: Not Given Nicotine (Nicotine 21 Mg Patch.Td24) 21 mg TRANSDERMA DAILY [facility] Last Admin: 07/01/24 08:15 Dose: 21 mg Risperidone (Risperidone 1 Mg Tablet) 1 mg PO BID [facility] Last Admin: 07/01/24 08:26 Dose: Not Given Spironolactone (Spironolactone 25 Mg Tablet) 25 mg PO DAILY [facility]; Protocol Last Admin: 06/25/24 09:58 Dose: Not Given Tramadol HCl (Tramadol Hcl 50 Mg Tablet) 50 mg PO Q4H PRN PRN Reason: Pain, Severe (Pain Scale 7-10) Last Admin: 07/01/24 10:09 Dose: 50 mg Trazodone HCl (Trazodone Hcl 50 Mg Tablet) 50 mg PO BEDTIME PRN PRN Reason: Insomnia Allergies Allergies Allergy/AdvReac Type Severity Reaction Status Date / Time codeine AdvReac Itching Verified 06/14/24 16:07 Assessment & Plan Assessment & Plan (1) Schizoaffective disorder: Status: Acute Code(s): F25.9 - Schizoaffective disorder, unspecified (2) CHF (congestive heart failure): Status: Acute Code(s): I50.9 - Heart failure, unspecified Assessment and Plan: newly diagnosed at [facility] 06/09/24- started on lasix and spironolactone ECHO 11/24/2023- LV systolic function low normal LVEF 50-55%; Basal inferior wall hypokinetic, dilated left atrium, mild-moderate mitral regurgitation. 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 Plan Ms. He is a 63 year-old woman with hx of paranoid/persecutory delusions and some grandiose delusions. She initially was assessed by [facility] in the community and sent to [facility]. She presented with bilateral lower edema, admitted medically and found to have exacerbation of CHF. She presented with paranoid and persecutory delusions, not believing what doctors are telling her about her medical diagnoses and refusing treatment on the basis of delusional believes. It also appears that there has been more concern in terms of her ability to care for herself, and on 05/21/24 per [facility] ED records, was brought by fire dept as apartment had no heat and pt noted to have LE edema. Pt reports this is not true and it was the fire department that boost heater intentionally. We discussed risks, benefits and alternative treatment options, she agrees to continue olanzapine, she declines cardiac medications stating she does not have any problems with her heart. PLAN 06/16 will d/c olanzapine, change to risperidone 1mg po BID. it will be offered, pt can declined as not court mandated. 06/17 continues to decline medications for heart failure, psychosis. additional collateral information gathered related to state of her apartment, ability to care for herself. 06/18 declines medication, swelling of legs worsening due to pt not taking lasix. 06/19 continues to decline medication for HF, swelling of legs worsening. 06/20 continue tx. weight gain of 1kg, 06/21 continue tx, monitor daily weights, encourage medications. 06/22 continue tx. concern in terms of impaired judgment due to paranoid delusions refusing medical care. 06/23: filed to court for involuntary treatment. 06/25 continue tx. will order hospitalist consult to adjust meds for edema, CHF as BP does seem to be getting low. 06/26/2024 Patient refusing Lasix refusing medication for psychosis. Patient is somewhat expansive we have filed for court hearing 06/27/[address] hearing on section 7 pending 8 06/28 continue tx. continues to retain fluids, weight increased today by at least 2 lbs in a day. continues to refuse tx for CHF. 06/29 continue tx. 06/30 continue tx. 07/01 continue tx. continue to retain fluids, decline lasix, BNP less than 200. Reason for continued inpatient stay Substantial Risk for: inability to function Time Spent With Patient Time: Total time managing care of this patient today ____ minutes.
[2024-07-01 20:00] VITALS: BP 148/80; PULSE 60; RESP 16; TEMP 36.1; O2SAT 97
[2024-07-02 08:00] VITALS: BP 103/61; PULSE 78; RESP 18; TEMP 36.1; O2SAT 98; BMI 27.0
[2024-07-02 08:42] VITALS: BP 103/61
[2024-07-02] MEDS: Aspirin 81 MG TAB.CHEW PO (08:42)
[2024-07-02] MEDS: Furosemide 20 MG TABLET PO (08:42)
[2024-07-02] MEDS: Nicotine 21 MG PATCH.TD24 TRANSDERMA (08:43)
[2024-07-02] MEDS: Ammonium Lactate 12 % Lotion 226 GM BOTTLE 1 APPL TOPICAL ×2 (09:11→20:08)
[2024-07-02 09:36] VITALS: BP 103/61; PULSE 78
--- NOTE | 2024-07-02 10:52 | PC.NURSE ---
About 8:00 AM the patient's sitter said, when she took Ariana to the bathroom at 3:00 AM, she coughed up some phlegm. The sitter said, she did not report it to the night nurse. Upon assessment no coughing, no SOB or respiratory distress noted. VS: T 97.0, P 64, BP 145/69, O2sat 98% on RA. Pt consumed breakfast, was compliant with meds. Remains on 1:1 observation. Maria Elena Espinoza notified.
--- NOTE | 2024-07-02 16:28 | HO.PSYCHPN ---
Subjective Subjective Date of Service: 07/02/24 Reason For Visit: delusional disorder Interim History: Pt slept all night. She continues to decline medications for fluid retention, heart failure. left leg getting worse in terms of edema, now is red and warmth to touch. 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 Review of Systems Review of Systems pain mgt Mental Status Exam Mental Status Exam Narrative: Appearance: wearing hospital gown, rotten front teeth, unkempt hair, in NAD Behavior: guarded, suspicious but opening more as conversation went on Psychomotor: no agitation, no retardation noted. No tremors noted Speech: clear, normal rate, verbose, regular rhythm, spontaneous TP: derailment, loose associations TC: paranoid/persecutory delusions Mood: I'm fine Affect: constricted, suspicious SI: denies HI: denies VH/AH: appears internally preoccupied but denies when asked Delusions: complex persecutory and delusional system of senator conspiring to take her buildings away, being able to hack into people's accounts, being monitored by the president of [employer] and Jim Maldonado. Does not believe medical doctors are telling the truth and she denies having CHF. Insight/judgment: impaired x 2. Memory/cog: alert, oriented x 3. situation is vague as she thinks she is here due to conspiracy to steal her her buildings. Diagnostics Vital Signs (24Hr): Vital Signs - 24 hr 07/01/24 20:00 07/02/24 08:00 07/02/24 08:42 Temperature 97 F 97.0 F Pulse Rate 60 78 Respiratory Rate 16 18 Blood Pressure 148/80 H 103/61 103/61 Pulse Oximetry 97 98 Oxygen Delivery Method Room Air Room Air 07/02/24 09:36 Temperature Pulse Rate 78 Respiratory Rate Blood Pressure 103/61 Pulse Oximetry Oxygen Delivery Method BMI result Body Mass Index 27.0 Labs 06/23/24 12:27 06/21/24 17:59 Labs: Laboratory Results - last 48 hr 06/30/24 18:14 B-Natriuretic Peptide 136 H Imaging Radiology Impressions: ITS Impressions Knee X-Ray 06/23/24 15:05 IMPRESSION: 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 Suprapatellar bursa joint effusion, small to moderate volume. Electronically signed by: Madhu Perez MD 06/23/2024 03:43 PM EDT Medications Medications Current Medications Acetaminophen (Acetaminophen 325 Mg Tablet) 650 mg PO Q6H PRN PRN Reason: Headache/Pain, Scale 1-10 Al Hydroxide/Mg Hydroxide (Magnesium Hydrox/Alum Hydrox 30 Ml Oral.Susp) 30 ml PO Q6H PRN PRN Reason: Heartburn/Nausea Aspirin (Aspirin 81 Mg Tab.Chew) 81 mg PO DAILY [facility] Last Admin: 07/02/24 08:42 Dose: 81 mg Furosemide (Furosemide 20 Mg Tablet) 20 mg PO DAILY [facility]; Protocol Last Admin: 07/02/24 08:42 Dose: 20 mg Lactic Acid (Ammonium Lactate 12 % Lotion 226 Gm Bottle) 1 appl TOPICAL BID [facility]; Protocol Last Admin: 07/02/24 09:11 Dose: 1 appl Magnesium Hydroxide (Milk Of Magnesia 30 Ml Oral.Susp) 30 ml PO DAILY PRN PRN Reason: Constipation Metoprolol Succinate (Metoprolol Succinate Er 12.5 Mg Halftab.Er.24h) 12.5 mg PO DAILY [facility]; Protocol Last Admin: 07/02/24 09:36 Dose: Not Given Nicotine (Nicotine 21 Mg Patch.Td24) 21 mg TRANSDERMA DAILY [facility] Last Admin: 07/02/24 08:43 Dose: 21 mg Risperidone (Risperidone 1 Mg Tablet) 1 mg PO BID [facility] Last Admin: 07/02/24 09:50 Dose: Not Given Spironolactone (Spironolactone 25 Mg Tablet) 25 mg PO DAILY [facility]; Protocol Last Admin: 06/25/24 09:58 Dose: Not Given Tramadol HCl (Tramadol Hcl 50 Mg Tablet) 50 mg PO Q4H PRN PRN Reason: Pain, Severe (Pain Scale 7-10) Last Admin: 07/01/24 22:25 Dose: 50 mg Trazodone HCl (Trazodone Hcl 50 Mg Tablet) 50 mg PO BEDTIME PRN PRN Reason: Insomnia Allergies Allergies Allergy/AdvReac Type Severity Reaction Status Date / Time codeine AdvReac Itching Verified 06/14/24 16:07 Assessment & Plan Assessment & Plan (1) Schizoaffective disorder: Status: Acute Code(s): F25.9 - Schizoaffective disorder, unspecified (2) CHF (congestive heart failure): Status: Acute Code(s): I50.9 - Heart failure, unspecified Assessment and Plan: newly diagnosed at [facility] 06/09/24- started on lasix and spironolactone ECHO 11/24/2023- LV systolic function low normal LVEF 50-55%; Basal inferior wall hypokinetic, dilated left atrium, mild-moderate mitral regurgitation. 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 Plan Ms. He is a 63 year-old woman with hx of paranoid/persecutory delusions and some grandiose delusions. She initially was assessed by N in the community and sent to [facility]. She presented with bilateral lower edema, admitted medically and found to have exacerbation of CHF. She presented with paranoid and persecutory delusions, not believing what doctors are telling her about her medical diagnoses and refusing treatment on the basis of delusional believes. It also appears that there has been more concern in terms of her ability to care for herself, and on 05/21/[address] [facility] ED records, was brought by fire dept as apartment had no heat and pt noted to have LE edema. Pt reports this is not true and it was the fire department that boost heater intentionally. We discussed risks, benefits and alternative treatment options, she agrees to continue olanzapine, she declines cardiac medications stating she does not have any problems with her heart. PLAN 06/16 will d/c olanzapine, change to risperidone 1mg po BID. it will be offered, pt can declined as not court mandated. 06/17 continues to decline medications for heart failure, psychosis. additional collateral information gathered related to state of her apartment, ability to care for herself. 06/18 declines medication, swelling of legs worsening due to pt not taking lasix. 06/19 continues to decline medication for HF, swelling of legs worsening. 06/20 continue tx. weight gain of 1kg, 06/21 continue tx, monitor daily weights, encourage medications. 06/22 continue tx. concern in terms of impaired judgment due to paranoid delusions refusing medical care. 06/23: filed to court for involuntary treatment. 06/25 continue tx. will order hospitalist consult to adjust meds for edema, CHF as BP does seem to be getting low. 06/26/2024 Patient refusing Lasix refusing medication for psychosis. Patient is somewhat expansive we have filed for court hearing 06/27/[address] hearing on section 7 pending 8 06/28 continue tx. continues to retain fluids, weight increased today by at least 2 lbs in a day. continues to refuse tx for CHF. 06/29 continue tx. 06/30 continue tx. 07/01 continue tx. continue to retain fluids, decline lasix, BNP less than 200. 07/02 left leg edema worsening, monitor s/s of cellulitis, pulmonary edema Reason for continued inpatient stay Substantial Risk for: inability to function Time Spent With Patient Time: Total time managing care of this patient today ____ minutes.
[2024-07-02] MEDS: traMADoL HCL 50 MG TABLET PO ×2 (17:27→21:30)
[2024-07-02 20:00] VITALS: BP 164/79; PULSE 65; RESP 18; TEMP 36.3; O2SAT 100
[2024-07-03 05:05] VITALS: BMI 26.9
[2024-07-03] MEDS: traMADoL HCL 50 MG TABLET PO ×5 (05:57→22:05)
[2024-07-03 08:35] VITALS: BP 105/72; PULSE 74; RESP 16; TEMP 36.8; O2SAT 97
[2024-07-03] MEDS: Aspirin 81 MG TAB.CHEW PO (08:35)
[2024-07-03] MEDS: Nicotine 21 MG PATCH.TD24 TRANSDERMA (08:35)
[2024-07-03] MEDS: Furosemide 20 MG TABLET PO (08:35)
--- NOTE | 2024-07-03 08:56 | HO.PSYCHPN ---
Subjective Subjective Date of Service: 07/03/24 Reason For Visit: delusional disorder Interim History: Pt slept all night. She took Lasix today. I'm on a patch to quit smoking and a diuretic pill . LLE edema continues. She continues to report paranoid delusions. Pleasant with this report writer and without behavioral concerns. Suspicious of staff. Declines psychotropic medications. Review of Systems Review of Systems pain mgt Mental Status Exam Mental Status Exam Narrative: Appearance: wearing hospital gown, rotten front teeth, unkempt hair, in NAD Behavior: guarded, suspicious but opening more as conversation went on Psychomotor: no agitation, no retardation noted. 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 Does not believe medical doctors are telling the truth and she denies having CHF. Insight/judgment: impaired x 2. Memory/cog: alert, oriented x 3. situation is vague as she thinks she is here due to conspiracy to steal her her buildings. Patient Appearance: Fatigued and Disheveled Patient Orientation: Person and Place Level of Consciousness: Alert Patient Behavior: Guarded, Talkative, Suspicious, Resistive to Care and Good Eye Contact Mood Description: Constricted Affect Description: Constricted Patient Cognition Impaired: Yes Ability to Follow Directions: Fair Speech Pattern: Spontaneous Speech Memory Description: Remote Impaired Diagnostics Vital Signs (24Hr): Vital Signs - 24 hr 07/02/24 09:36 07/02/24 20:00 07/03/24 08:35 Temperature 97.4 F Pulse Rate 78 65 Respiratory Rate 18 Blood Pressure 103/61 164/79 H 105/72 Pulse Oximetry 100 Oxygen Delivery Method Room Air 07/03/24 08:35 Temperature 98.2 F Pulse Rate 74 Respiratory Rate 16 Blood Pressure 105/72 Pulse Oximetry 97 Oxygen Delivery Method Room Air BMI result Body Mass Index 26.9 Labs 06/23/24 12:27 06/21/24 17:59 Imaging Radiology Impressions: ITS Impressions Knee X-Ray 06/23/24 15:05 IMPRESSION: 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 Suprapatellar bursa joint effusion, small to moderate volume. Electronically signed by: Madhu Perez MD 06/23/2024 03:43 PM EDT RP Medications Medications Current Medications Acetaminophen (Acetaminophen 325 Mg Tablet) 650 mg PO Q6H PRN PRN Reason: Headache/Pain, Scale 1-10 Al Hydroxide/Mg Hydroxide (Magnesium Hydrox/Alum Hydrox 30 Ml Oral.Susp) 30 ml PO Q6H PRN PRN Reason: Heartburn/Nausea Aspirin (Aspirin 81 Mg Tab.Chew) 81 mg PO DAILY [facility] Last Admin: 07/03/24 08:35 Dose: 81 mg Furosemide (Furosemide 20 Mg Tablet) 20 mg PO DAILY [facility]; Protocol Last Admin: 07/03/24 08:35 Dose: 20 mg Lactic Acid (Ammonium Lactate 12 % Lotion 226 Gm Bottle) 1 appl TOPICAL BID [facility]; Protocol Last Admin: 07/02/24 20:08 Dose: 1 appl Magnesium Hydroxide (Milk Of Magnesia 30 Ml Oral.Susp) 30 ml PO DAILY PRN PRN Reason: Constipation Metoprolol Succinate (Metoprolol Succinate Er 12.5 Mg Halftab.Er.24h) 12.5 mg PO DAILY [facility]; Protocol Last Admin: 07/03/24 08:38 Dose: Not Given Nicotine (Nicotine 21 Mg Patch.Td24) 21 mg TRANSDERMA DAILY [facility] Last Admin: 07/03/24 08:35 Dose: 21 mg Risperidone (Risperidone 1 Mg Tablet) 1 mg PO BID [facility] Last Admin: 07/03/24 08:38 Dose: Not Given Spironolactone (Spironolactone 25 Mg Tablet) 25 mg PO DAILY [facility]; Protocol Last Admin: 06/25/24 09:58 Dose: Not Given Tramadol HCl (Tramadol Hcl 50 Mg Tablet) 50 mg PO Q4H PRN PRN Reason: Pain, Severe (Pain Scale 7-10) Last Admin: 07/03/24 05:57 Dose: 50 mg Trazodone HCl (Trazodone Hcl 50 Mg Tablet) 50 mg PO BEDTIME PRN PRN Reason: Insomnia Allergies Allergies Allergy/AdvReac Type Severity Reaction Status Date / Time codeine AdvReac Itching Verified 06/14/24 16:07 Assessment & Plan Assessment & Plan (1) Schizoaffective disorder: Status: Acute Code(s): F25.9 - Schizoaffective disorder, unspecified (2) CHF (congestive heart failure): Status: Acute Code(s): I50.9 - Heart failure, unspecified Assessment and Plan: newly diagnosed at [facility] 06/09/24- started on lasix and spironolactone ECHO 11/24/2023- LV systolic function low normal LVEF 50-55%; Basal inferior wall hypokinetic, dilated left atrium, mild-moderate mitral regurgitation. 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 Plan Ms. He is a 63 year-old woman with hx of paranoid/persecutory delusions and some grandiose delusions. She initially was assessed by N in the community and sent to [facility]. She presented with bilateral lower edema, admitted medically and found to have exacerbation of CHF. She presented with paranoid and persecutory delusions, not believing what doctors are telling her about her medical diagnoses and refusing treatment on the basis of delusional believes. It also appears that there has been more concern in terms of her ability to care for herself, and on 05/21/24 per [facility] ED records, was brought by fire dept as apartment had no heat and pt noted to have LE edema. Pt reports this is not true and it was the fire department that boost heater intentionally. We discussed risks, benefits and alternative treatment options, she agrees to continue olanzapine, she declines cardiac medications stating she does not have any problems with her heart. PLAN 06/16 will d/c olanzapine, change to risperidone 1mg po BID. it will be offered, pt can declined as not court mandated. 06/17 continues to decline medications for heart failure, psychosis. additional collateral information gathered related to state of her apartment, ability to care for herself. 06/18 declines medication, swelling of legs worsening due to pt not taking lasix. 06/19 continues to decline medication for HF, swelling of legs worsening. 06/20 continue tx. weight gain of 1kg, 06/21 continue tx, monitor daily weights, encourage medications. 06/22 continue tx. concern in terms of impaired judgment due to paranoid delusions refusing medical care. 06/23: filed to court for involuntary treatment. 06/25 continue tx. will order hospitalist consult to adjust meds for edema, CHF as BP does seem to be getting low. 06/26/2024 Patient refusing Lasix refusing medication for psychosis. Patient is somewhat expansive we have filed for court hearing 06/27/[address] hearing on section 7 pending 8 06/28 continue tx. continues to retain fluids, weight increased today by at least 2 lbs in a day. continues to refuse tx for CHF. 06/29 continue tx. 06/30 continue tx. 07/01 continue tx. continue to retain fluids, decline lasix, BNP less than 200. 07/03: Continue current management and treatment plan. Reason for continued inpatient stay Substantial Risk for: harm to self, inability to function, rapid decompensation and med/psych decompensation Time Spent With Patient Time: Total time managing care of this patient today ____ minutes.
[2024-07-03] MEDS: Ammonium Lactate 12 % Lotion 226 GM BOTTLE 1 APPL TOPICAL ×2 (10:06→20:44)
--- NOTE | 2024-07-03 13:52 | PC.NURSE ---
Dahiana declined to take Risperdal and Toprol XL; Dr. Torres notified.
[2024-07-03 20:00] VITALS: BP 149/77; PULSE 65; RESP 18; TEMP 36.3; O2SAT 99
[2024-07-04 06:23] VITALS: BMI 27.0
[2024-07-04 08:00] VITALS: BP 156/84; PULSE 66; RESP 16; TEMP 36.2; O2SAT 100
[2024-07-04] MEDS: Aspirin 81 MG TAB.CHEW PO (08:31)
[2024-07-04] MEDS: Furosemide 20 MG TABLET PO (08:31)
[2024-07-04] MEDS: traMADoL HCL 50 MG TABLET PO ×4 (08:31→21:25)
[2024-07-04] MEDS: Nicotine 21 MG PATCH.TD24 TRANSDERMA (08:31)
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
[2024-07-04] MEDS: Ammonium Lactate 12 % Lotion 226 GM BOTTLE 1 APPL TOPICAL (17:26)
[2024-07-04 20:00] VITALS: BP 128/64; PULSE 66; RESP 18; TEMP 36.3; O2SAT 99
[2024-07-05 07:49] VITALS: BMI 26.9
[2024-07-05 08:26] VITALS: BP 124/71; PULSE 65; RESP 16; TEMP 36.8; O2SAT 65
[2024-07-05] MEDS: Ammonium Lactate 12 % Lotion 226 GM BOTTLE 1 APPL TOPICAL (08:41)
[2024-07-05] MEDS: Nicotine 21 MG PATCH.TD24 TRANSDERMA (08:42)
[2024-07-05] MEDS: Furosemide 20 MG TABLET PO (08:43)
[2024-07-05] MEDS: traMADoL HCL 50 MG TABLET PO ×3 (08:43→20:47)
[2024-07-05] MEDS: Aspirin 81 MG TAB.CHEW PO (08:43)
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
[2024-07-05 20:00] VITALS: BP 122/60; PULSE 77; RESP 18; TEMP 36; O2SAT 98
[2024-07-06] MEDS: traMADoL HCL 50 MG TABLET PO ×3 (06:10→20:54)
[2024-07-06 08:00] VITALS: BMI 27.1
[2024-07-06 08:46] VITALS: BP 140/72; PULSE 85; RESP 18; TEMP 35.8; O2SAT 99
[2024-07-06] MEDS: Furosemide 20 MG TABLET PO (08:46)
[2024-07-06] MEDS: Aspirin 81 MG TAB.CHEW PO (08:47)
[2024-07-06] MEDS: Nicotine 21 MG PATCH.TD24 TRANSDERMA (08:47)
[2024-07-06] MEDS: Ammonium Lactate 12 % Lotion 226 GM BOTTLE 1 APPL TOPICAL ×2 (08:55→20:54)
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
[2024-07-06 20:00] VITALS: BP 135/67; PULSE 74; RESP 18; TEMP 36.6; O2SAT 97
[2024-07-07 04:52] VITALS: BMI 26.9
[2024-07-07] MEDS: traMADoL HCL 50 MG TABLET PO ×3 (06:37→20:23)
[2024-07-07 08:00] VITALS: BP 122/74; PULSE 73; RESP 18; TEMP 36.7; O2SAT 98
[2024-07-07] MEDS: Nicotine 21 MG PATCH.TD24 TRANSDERMA (08:26)
[2024-07-07 08:27] VITALS: BP 122/74
[2024-07-07] MEDS: Furosemide 20 MG TABLET PO (08:27)
[2024-07-07] MEDS: Aspirin 81 MG TAB.CHEW PO (08:28)
--- NOTE | 2024-07-07 13:29 | PC.NURSE ---
ACLS and MOCA: Pt scored a 16/30 on the MOCA indicating MODERATE cognitive impairment with deficits in executive and visual-spatial elements as well as attention, and short-term memory. Pt scored a 4.6 on the [place] Cognitive Level Screen indicating MODERATE cognitive impairment and the need for 30% cognitive assistance for problem solving outside of her routine, IADLs and daily cueing for safety.
[2024-07-07 20:00] VITALS: BP 162/79; PULSE 71; RESP 16; TEMP 36.1; O2SAT 100
[2024-07-07] MEDS: risperiDONE 1 MG TABLET PO (20:26)
[2024-07-07] MEDS: Ammonium Lactate 12 % Lotion 226 GM BOTTLE 1 APPL TOPICAL (20:49)
[2024-07-08] MEDS: Acetaminophen 325 MG TABLET 650 MG PO (06:13)
[2024-07-08 06:31] VITALS: BMI 26.9
[2024-07-08] MEDS: Nicotine 21 MG PATCH.TD24 TRANSDERMA (08:22)
[2024-07-08] MEDS: traMADoL HCL 50 MG TABLET PO ×2 (08:23→19:37)
[2024-07-08 08:25] VITALS: BP 139/63; PULSE 75; RESP 16; TEMP 36.3; O2SAT 99
[2024-07-08] MEDS: Aspirin 81 MG TAB.CHEW PO (08:26)
[2024-07-08] MEDS: Furosemide 20 MG TABLET PO (08:26)
[2024-07-08 09:44] VITALS: BMI 26.9
--- NOTE | 2024-07-08 13:49 | HO.PSYCHPN ---
Subjective Subjective Date of Service: 07/07/24 Reason For Visit: delusional disorder Subjective Notes: Section 7 Interim History: Pt slept all night. She did take lasix today. Her leg is less swollen, less red. 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 She declines risperidone. She continues to report paranoid delusions of this person outside trying to steal from her but also people including other pts involved in conspiracy against her. She denies SI/HI. She continues to report that she will return to her apartment even though it has no electricity, water, or heat. She states this was done by health department intentionally and has nothing to do with lack of payment. She still reports she does not believe she has heart failure, this is a lie. Review of Systems Review of Systems pain mgt Mental Status Exam Mental Status Exam Narrative: Appearance: wearing hospital gown, rotten front teeth, unkempt hair, in NAD Behavior: guarded, suspicious but opening more as conversation went on Psychomotor: no agitation, no retardation noted. 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 Does not believe medical doctors are telling the truth and she denies having CHF. Insight/judgment: impaired x 2. Memory/cog: alert, oriented x 3. situation is vague as she thinks she is here due to conspiracy to steal her her buildings. 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 Suprapatellar bursa joint effusion, small to moderate volume. Electronically signed by: Madhu Perez MD 06/23/2024 03:43 PM EDT RP Medications Medications Current Medications Acetaminophen (Acetaminophen 325 Mg Tablet) 650 mg PO Q6H PRN PRN Reason: Headache/Pain, Scale 1-10 Last Admin: 07/08/24 06:13 Dose: 650 mg Al Hydroxide/Mg Hydroxide (Magnesium Hydrox/Alum Hydrox 30 Ml Oral.Susp) 30 ml PO Q6H PRN PRN Reason: Heartburn/Nausea Aspirin (Aspirin 81 Mg Tab.Chew) 81 mg PO DAILY [facility] Last Admin: 07/08/24 08:26 Dose: 81 mg Furosemide (Furosemide 20 Mg Tablet) 20 mg PO DAILY [facility]; Protocol Last Admin: 07/08/24 08:26 Dose: 20 mg Lactic Acid (Ammonium Lactate 12 % Lotion 226 Gm Bottle) 1 appl TOPICAL BID [facility]; Protocol Last Admin: 07/07/24 20:49 Dose: 1 appl Magnesium Hydroxide (Milk Of Magnesia 30 Ml Oral.Susp) 30 ml PO DAILY PRN PRN Reason: Constipation Metoprolol Succinate (Metoprolol Succinate Er 12.5 Mg Halftab.Er.24h) 12.5 mg PO DAILY [facility]; Protocol Last Admin: 07/08/24 08:28 Dose: Not Given Nicotine (Nicotine 21 Mg Patch.Td24) 21 mg TRANSDERMA DAILY [facility] Last Admin: 07/08/24 08:22 Dose: 21 mg Risperidone (Risperidone 1 Mg Tablet) 1 mg PO BID [facility] Last Admin: 07/08/24 08:28 Dose: Not Given Spironolactone (Spironolactone 25 Mg Tablet) 25 mg PO DAILY [facility]; Protocol Last Admin: 07/08/24 08:28 Dose: Not Given Tramadol HCl (Tramadol Hcl 50 Mg Tablet) 50 mg PO Q4H PRN PRN Reason: Pain, Severe (Pain Scale 7-10) Last Admin: 07/08/24 08:23 Dose: 50 mg Trazodone HCl (Trazodone Hcl 50 Mg Tablet) 50 mg PO BEDTIME PRN PRN Reason: Insomnia Allergies Allergies Allergy/AdvReac Type Severity Reaction Status Date / Time eggplant Allergy Unknown Verified 07/03/24 15:14 onion Allergy Unknown Verified 07/03/24 15:14 peanut Allergy Anaphylaxis Verified 07/03/24 15:14 Peppers, Green Allergy Unknown Verified 07/03/24 15:14 Peppers, Jalapeno Allergy Unknown Verified 07/03/24 15:28 Peppers, Red Allergy Unknown Verified 07/03/24 15:28 Peppers, Yellow Allergy Unknown Verified 07/03/24 15:28 tomato Allergy Unknown Verified 07/03/24 15:14 codeine AdvReac Itching Verified 06/14/24 16:07 Assessment & Plan Assessment & Plan (1) Schizoaffective disorder: Status: Acute Code(s): F25.9 - Schizoaffective disorder, unspecified (2) CHF (congestive heart failure): Status: Acute Code(s): I50.9 - Heart failure, unspecified Assessment and Plan: newly diagnosed at [place] 06/09/24- started on lasix and spironolactone ECHO 11/24/2023- LV systolic function low normal LVEF 50-55%; Basal inferior wall hypokinetic, dilated left atrium, mild-moderate mitral regurgitation. 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 Plan Ms. He is a 63 year-old woman with hx of paranoid/persecutory delusions and some grandiose delusions. She initially was assessed by N in the community and sent to [place]. She presented with bilateral lower edema, admitted medically and found to have exacerbation of CHF. She presented with paranoid and persecutory delusions, not believing what doctors are telling her about her medical diagnoses and refusing treatment on the basis of delusional believes. It also appears that there has been more concern in terms of her ability to care for herself, and on 05/21/24 per [facility] ED records, was brought by fire dept as apartment had no heat and pt noted to have LE edema. Pt reports this is not true and it was the fire department that boost heater intentionally. We discussed risks, benefits and alternative treatment options, she agrees to continue olanzapine, she declines cardiac medications stating she does not have any problems with her heart. PLAN 06/16 will d/c olanzapine, change to risperidone 1mg po BID. it will be offered, pt can declined as not court mandated. 06/17 continues to decline medications for heart failure, psychosis. additional collateral information gathered related to state of her apartment, ability to care for herself. 06/18 declines medication, swelling of legs worsening due to pt not taking lasix. 06/19 continues to decline medication for HF, swelling of legs worsening. 06/20 continue tx. weight gain of 1kg, 06/21 continue tx, monitor daily weights, encourage medications. 06/22 continue tx. concern in terms of impaired judgment due to paranoid delusions refusing medical care. 06/23: filed to court for involuntary treatment. 06/25 continue tx. will order hospitalist consult to adjust meds for edema, CHF as BP does seem to be getting low. 06/26/2024 Patient refusing Lasix refusing medication for psychosis. Patient is somewhat expansive we have filed for court hearing 06/27/[address] hearing on section 7 pending 8 06/28 continue tx. continues to retain fluids, weight increased today by at least 2 lbs in a day. continues to refuse tx for CHF. 06/29 continue tx. 06/30 continue tx. 07/01 continue tx. continue to retain fluids, decline lasix, BNP less than 200. 07/03: Continue current management and treatment plan. 07/04: continue current management and treatment plan. 07/05 continue tx. pending 7 &8. 07/06 continue tx. 07/07 continue tx. Reason for continued inpatient stay Substantial Risk for: inability to function Time Spent With Patient Time: Total time managing care of this patient today ____ minutes.
[2024-07-08] MEDS: Ammonium Lactate 12 % Lotion 226 GM BOTTLE 1 APPL TOPICAL ×2 (14:18→19:37)
--- NOTE | 2024-07-08 16:57 | HO.PSYCHPN ---
Subjective Subjective Date of Service: 07/08/24 Reason For Visit: delusional disorder Subjective Notes: Section 7 Interim History: Pt slept most of the night. She did try one time dose of risperidone. She reports she felt lightheaded after it, however, her BP last night was elevated not low. She attributes this to one time dose of risperidone. She continues to report that she does not believe she has heart failure, she declines spironolactone and metoprolol. She goes on about her believe that the only medical diagnosis that she has is antiphospolipid syndrome which prevented her from having children of her own. She also reports she will take aspirin which was recommended after stroke at [facility]. When asked how does she explain swelling of her legs, she states this is because of the food, also food given by [place] with intent to poison her because she is [place]. She goes on to say that men on the unit are part of [employer], connected to Mart[place]. She again continues to say that she plans to return to her apartment. Medication Compliance: No Review of Systems Review of Systems pain mgt Mental Status Exam Mental Status Exam Narrative: Appearance: wearing hospital gown, rotten front teeth, unkempt hair, in NAD Behavior: guarded, suspicious but opening more as conversation went on Psychomotor: no agitation, no retardation noted. No tremors noted Speech: clear, normal rate, verbose, regular rhythm, spontaneous TP: derailment, loose associations TC: paranoid/persecutory delusions Mood: I'm fine Affect: constricted, suspicious SI: denies HI: denies VH/AH: appears internally preoccupied but denies when asked Delusions: complex persecutory and delusional system of senator conspiring to take her buildings away, being able to hack into people's accounts, being monitored by the president of [employer] and Jim Maldonado. Does not believe medical doctors are telling the truth and she denies having CHF. Insight/judgment: impaired x 2. Memory/cog: alert, oriented x 3. situation is vague as she thinks she is here due to conspiracy to steal her her buildings. 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 Suprapatellar bursa joint effusion, small to moderate volume. Electronically signed by: Madhu Perez MD 06/23/2024 03:43 PM EDT Medications Medications Current Medications Acetaminophen (Acetaminophen 325 Mg Tablet) 650 mg PO Q6H PRN PRN Reason: Headache/Pain, Scale 1-10 Last Admin: 07/08/24 06:13 Dose: 650 mg Al Hydroxide/Mg Hydroxide (Magnesium Hydrox/Alum Hydrox 30 Ml Oral.Susp) 30 ml PO Q6H PRN PRN Reason: Heartburn/Nausea Aspirin (Aspirin 81 Mg Tab.Chew) 81 mg PO DAILY [facility] Last Admin: 07/08/24 08:26 Dose: 81 mg Furosemide (Furosemide 20 Mg Tablet) 20 mg PO DAILY [facility]; Protocol Last Admin: 07/08/24 08:26 Dose: 20 mg Lactic Acid (Ammonium Lactate 12 % Lotion 226 Gm Bottle) 1 appl TOPICAL BID [facility]; Protocol Last Admin: 07/08/24 14:18 Dose: 1 appl Magnesium Hydroxide (Milk Of Magnesia 30 Ml Oral.Susp) 30 ml PO DAILY PRN PRN Reason: Constipation Metoprolol Succinate (Metoprolol Succinate Er 12.5 Mg Halftab.Er.24h) 12.5 mg PO DAILY [facility]; Protocol Last Admin: 07/08/24 08:28 Dose: Not Given Nicotine (Nicotine 21 Mg Patch.Td24) 21 mg TRANSDERMA DAILY [facility] Last Admin: 07/08/24 08:22 Dose: 21 mg Risperidone (Risperidone 1 Mg Tablet) 1 mg PO BID [facility] Last Admin: 07/08/24 08:28 Dose: Not Given Spironolactone (Spironolactone 25 Mg Tablet) 25 mg PO DAILY [facility]; Protocol Last Admin: 07/08/24 08:28 Dose: Not Given Tramadol HCl (Tramadol Hcl 50 Mg Tablet) 50 mg PO Q4H PRN PRN Reason: Pain, Severe (Pain Scale 7-10) Last Admin: 07/08/24 08:23 Dose: 50 mg Trazodone HCl (Trazodone Hcl 50 Mg Tablet) 50 mg PO BEDTIME PRN PRN Reason: Insomnia Allergies Allergies Allergy/AdvReac Type Severity Reaction Status Date / Time eggplant Allergy Unknown Verified 07/03/24 15:14 onion Allergy Unknown Verified 07/03/24 15:14 peanut Allergy Anaphylaxis Verified 07/03/24 15:14 Peppers, Green Allergy Unknown Verified 07/03/24 15:14 Peppers, Jalapeno Allergy Unknown Verified 07/03/24 15:28 Peppers, Red Allergy Unknown Verified 07/03/24 15:28 Peppers, Yellow Allergy Unknown Verified 07/03/24 15:28 tomato Allergy Unknown Verified 07/03/24 15:14 codeine AdvReac Itching Verified 06/14/24 16:07 Assessment & Plan Assessment & Plan (1) Schizoaffective disorder: Status: Acute Code(s): F25.9 - Schizoaffective disorder, unspecified (2) CHF (congestive heart failure): Status: Acute Code(s): I50.9 - Heart failure, unspecified Assessment and Plan: newly diagnosed at [place] 06/09/24- started on lasix and spironolactone ECHO 11/24/2023- LV systolic function low normal LVEF 50-55%; Basal inferior wall hypokinetic, dilated left atrium, mild-moderate mitral regurgitation. 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 Plan Ms. He is a 63 year-old woman with hx of paranoid/persecutory delusions and some grandiose delusions. She initially was assessed by N in the community and sent to [place]. She presented with bilateral lower edema, admitted medically and found to have exacerbation of CHF. She presented with paranoid and persecutory delusions, not believing what doctors are telling her about her medical diagnoses and refusing treatment on the basis of delusional believes. It also appears that there has been more concern in terms of her ability to care for herself, and on 05/21/24 per [facility] ED records, was brought by fire dept as apartment had no heat and pt noted to have LE edema. Pt reports this is not true and it was the fire department that boost heater intentionally. We discussed risks, benefits and alternative treatment options, she agrees to continue olanzapine, she declines cardiac medications stating she does not have any problems with her heart. PLAN 06/16 will d/c olanzapine, change to risperidone 1mg po BID. it will be offered, pt can declined as not court mandated. 06/17 continues to decline medications for heart failure, psychosis. additional collateral information gathered related to state of her apartment, ability to care for herself. 06/18 declines medication, swelling of legs worsening due to pt not taking lasix. 06/19 continues to decline medication for HF, swelling of legs worsening. 06/20 continue tx. weight gain of 1kg, 06/21 continue tx, monitor daily weights, encourage medications. 06/22 continue tx. concern in terms of impaired judgment due to paranoid delusions refusing medical care. 06/23: filed to court for involuntary treatment. 06/25 continue tx. will order hospitalist consult to adjust meds for edema, CHF as BP does seem to be getting low. 06/26/2024 Patient refusing Lasix refusing medication for psychosis. Patient is somewhat expansive we have filed for court hearing 06/27/[address] hearing on section 7 pending 8 06/28 continue tx. continues to retain fluids, weight increased today by at least 2 lbs in a day. continues to refuse tx for CHF. 06/29 continue tx. 06/30 continue tx. 07/01 continue tx. continue to retain fluids, decline lasix, BNP less than 200. 07/03: Continue current management and treatment plan. 07/04: continue current management and treatment plan. 07/05 continue tx. pending 7 &8. 07/06 continue tx. 07/07 continue tx 07/08 continue tx. Reason for continued inpatient stay Substantial Risk for: inability to function Time Spent With Patient Time: Total time managing care of this patient today ____ minutes.
[2024-07-08 19:35] VITALS: BP 144/78; PULSE 71; RESP 16; TEMP 37; O2SAT 97
[2024-07-09 03:55] VITALS: BMI 26.8
[2024-07-09] MEDS: traMADoL HCL 50 MG TABLET PO ×4 (05:29→20:03)
[2024-07-09] MEDS: risperiDONE 1 MG TABLET PO (05:30)
[2024-07-09 08:00] VITALS: BP 124/61; PULSE 80; RESP 16; TEMP 36.8; O2SAT 100
[2024-07-09] MEDS: Nicotine 21 MG PATCH.TD24 TRANSDERMA (08:11)
[2024-07-09] MEDS: Aspirin 81 MG TAB.CHEW PO (08:12)
[2024-07-09] MEDS: Furosemide 20 MG TABLET PO (08:12)
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
[2024-07-09 20:00] VITALS: BP 118/65; PULSE 74; RESP 18; TEMP 36.5; O2SAT 100
[2024-07-09] MEDS: Ammonium Lactate 12 % Lotion 226 GM BOTTLE 1 APPL TOPICAL (21:30)
[2024-07-10 07:45] VITALS: BMI 27.0
[2024-07-10 08:10] VITALS: BP 117/60; PULSE 77; RESP 16; TEMP 36.6; O2SAT 100
[2024-07-10] MEDS: Nicotine 21 MG PATCH.TD24 TRANSDERMA (08:13)
[2024-07-10] MEDS: traMADoL HCL 50 MG TABLET PO ×3 (08:16→20:22)
[2024-07-10] MEDS: Furosemide 20 MG TABLET PO (08:16)
[2024-07-10] MEDS: Ammonium Lactate 12 % Lotion 226 GM BOTTLE 1 APPL TOPICAL ×2 (08:16→20:32)
[2024-07-10] MEDS: Aspirin 81 MG TAB.CHEW PO (08:16)
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
[2024-07-10 20:00] VITALS: BP 156/79; PULSE 72; RESP 16; TEMP 36.6; O2SAT 100
[2024-07-11 07:41] VITALS: BMI 27.0
[2024-07-11 08:06] VITALS: BP 149/85; PULSE 72; RESP 16; TEMP 36; O2SAT 100
[2024-07-11] MEDS: Nicotine 21 MG PATCH.TD24 TRANSDERMA (08:07)
[2024-07-11 08:08] VITALS: BP 149/85
[2024-07-11] MEDS: Furosemide 20 MG TABLET PO (08:08)
[2024-07-11] MEDS: Aspirin 81 MG TAB.CHEW PO (08:08)
[2024-07-11] MEDS: traMADoL HCL 50 MG TABLET PO ×3 (08:08→20:13)
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
[2024-07-11 20:00] VITALS: BP 142/80; PULSE 74; RESP 18; TEMP 36.9; O2SAT 100
[2024-07-11] MEDS: Ammonium Lactate 12 % Lotion 226 GM BOTTLE 1 APPL TOPICAL (20:13)
[2024-07-12 05:05] VITALS: BMI 27.0
[2024-07-12 08:12] VITALS: BP 139/75; PULSE 66; RESP 18; TEMP 36.8; O2SAT 100
[2024-07-12] MEDS: Nicotine 21 MG PATCH.TD24 TRANSDERMA (08:13)
[2024-07-12] MEDS: traMADoL HCL 50 MG TABLET PO ×3 (08:14→21:13)
[2024-07-12] MEDS: Furosemide 20 MG TABLET PO (08:14)
[2024-07-12] MEDS: Ammonium Lactate 12 % Lotion 226 GM BOTTLE 1 APPL TOPICAL ×2 (08:14→21:13)
[2024-07-12] MEDS: Aspirin 81 MG TAB.CHEW PO (08:15)
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
--- NOTE | 2024-07-12 16:12 | HO.WOUND ---
Wound Consult: Follow up 63yr old?female admitted to [facility] on 06/14/24- See progress notes and H&P for detailed history.? Wound consult follow up for Left Lower Leg.? Patient agreeable to assessment and photo documentation.? 06/16/24 Left Leg Etiology: Venous wound??Present on Admission Wound Bed: marbled wound bed with red and brown slough Drainage / Odor: scant vicente - no odor noted Edges: ? irregular Lizeth wound: Firm swelling noted - pink erythema - No Induration, Fluctuance or Warmth noted Pain: denies Goals of Treatment: ?Moisture management and autolytic debridement with Medihoney Recommendations: 1. Left Posterior Leg - Cleanse with NS moist gauze, pat dry. Apply Ammonium Lactate cream as prescribed. Cover wound bed with thin layer of Medihoney followed by ABD pad or dry gauze. Change every day. Medihoney left with direct care nurse (2 tubes) - only available from inpatient wound care nurse tiger text of more supply is needed. Re-consult wound care Nurse for wound deterioration or wound changes.
[2024-07-12 20:00] VITALS: BP 146/67; PULSE 78; RESP 18; TEMP 36.6; O2SAT 100
[2024-07-13 08:00] VITALS: BP 137/90; PULSE 82; RESP 14; TEMP 36.3; O2SAT 97
[2024-07-13] MEDS: Nicotine 21 MG PATCH.TD24 TRANSDERMA (08:09)
[2024-07-13 08:11] VITALS: BP 137/90
[2024-07-13] MEDS: Furosemide 20 MG TABLET PO (08:11)
[2024-07-13] MEDS: Aspirin 81 MG TAB.CHEW PO (08:13)
[2024-07-13] MEDS: traMADoL HCL 50 MG TABLET PO ×3 (08:13→20:32)
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
--- NOTE | 2024-07-13 13:56 | PC.NURSE ---
left lower leg dsg changed, wound bed is covered in slough, area cleaned and medihoney applied followed by DCD, large amt of serioussang drainage which leaked down into her sock. Leg edema 2+ edema on left and right <1+. Lachydra applied to both lower legs.
[2024-07-13 20:00] VITALS: BP 126/70; PULSE 70; RESP 18; TEMP 36.6; O2SAT 99
[2024-07-13] MEDS: Ammonium Lactate 12 % Lotion 226 GM BOTTLE 1 APPL TOPICAL (20:32)
[2024-07-14 08:00] VITALS: BP 134/79; PULSE 76; RESP 16; TEMP 36.1; O2SAT 96; BMI 27.0
[2024-07-14] MEDS: Nicotine 21 MG PATCH.TD24 TRANSDERMA (08:32)
[2024-07-14] MEDS: Aspirin 81 MG TAB.CHEW PO (08:37)
[2024-07-14] MEDS: traMADoL HCL 50 MG TABLET PO ×3 (08:37→20:39)
[2024-07-14] MEDS: Spironolactone 25 MG TABLET PO (08:37)
[2024-07-14] MEDS: Furosemide 20 MG TABLET PO (08:38)
[2024-07-14] MEDS: Ammonium Lactate 12 % Lotion 226 GM BOTTLE 1 APPL TOPICAL ×2 (08:39→20:39)
--- NOTE | 2024-07-14 12:59 | HO.WOUND ---
Wound dsg changed large amt of serious drainage note wound is approx 3mmX1.5MMx0.1MM since yesterday there is an improvement in the wound bed approx 50% slough noted skin around is raw looking medihoney to wound bed with DCD applied. Odor noted to her leg. Her edema has improved as well her leg is less tense than yesterday.
--- NOTE | 2024-07-14 13:10 | PC.NURSE ---
While doing her dsg she was making statements about the old man taking pictures of her while she has been at her desk
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
[2024-07-14 20:00] VITALS: BP 103/60; PULSE 82; RESP 16; TEMP 36.6; O2SAT 94
[2024-07-15 07:33] VITALS: BMI 26.4
[2024-07-15 08:21] VITALS: BP 115/77; PULSE 79; RESP 18; TEMP 36.6; O2SAT 99
[2024-07-15] MEDS: Nicotine 21 MG PATCH.TD24 TRANSDERMA (08:21)
[2024-07-15] MEDS: Aspirin 81 MG TAB.CHEW PO (08:21)
[2024-07-15] MEDS: Furosemide 20 MG TABLET PO (08:21)
[2024-07-15 08:26] VITALS: BP 115/77
[2024-07-15] MEDS: Spironolactone 25 MG TABLET PO (08:26)
[2024-07-15] MEDS: Ammonium Lactate 12 % Lotion 226 GM BOTTLE 1 APPL TOPICAL ×2 (08:28→20:24)
[2024-07-15] MEDS: traMADoL HCL 50 MG TABLET PO ×3 (08:29→20:24)
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
[2024-07-15 20:00] VITALS: BP 103/63; PULSE 64; RESP 16; TEMP 36.1; O2SAT 97
[2024-07-16] MEDS: Acetaminophen 325 MG TABLET 650 MG PO (06:51)
[2024-07-16 08:00] VITALS: BMI 26.3
[2024-07-16 08:46] VITALS: BP 123/58; PULSE 70; RESP 16; TEMP 36.3; O2SAT 97
[2024-07-16] MEDS: Aspirin 81 MG TAB.CHEW PO (08:48)
[2024-07-16] MEDS: Spironolactone 25 MG TABLET PO (08:48)
[2024-07-16] MEDS: traMADoL HCL 50 MG TABLET PO ×3 (08:48→21:36)
[2024-07-16] MEDS: Furosemide 20 MG TABLET PO (08:48)
[2024-07-16] MEDS: Nicotine 21 MG PATCH.TD24 TRANSDERMA (08:49)
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
[2024-07-16] MEDS: Ammonium Lactate 12 % Lotion 226 GM BOTTLE 1 APPL TOPICAL ×2 (10:33→21:36)
[2024-07-16 20:00] VITALS: BP 124/67; PULSE 65; RESP 16; TEMP 36.4; O2SAT 96
[2024-07-17 08:00] VITALS: BP 106/62; PULSE 70; RESP 18; TEMP 36.8; O2SAT 98; BMI 26.3
[2024-07-17 09:05] VITALS: BP 106/62
[2024-07-17] MEDS: traMADoL HCL 50 MG TABLET PO ×3 (09:05→20:14)
[2024-07-17] MEDS: Spironolactone 25 MG TABLET PO (09:05)
[2024-07-17] MEDS: Furosemide 20 MG TABLET PO (09:05)
[2024-07-17] MEDS: Aspirin 81 MG TAB.CHEW PO (09:05)
[2024-07-17] MEDS: Nicotine 21 MG PATCH.TD24 TRANSDERMA (09:06)
[2024-07-17] MEDS: Ammonium Lactate 12 % Lotion 226 GM BOTTLE 1 APPL TOPICAL ×2 (09:11→20:15)
--- NOTE | 2024-07-17 09:35 | HO.PSYCHPN ---
Subjective Subjective Date of Service: 07/17/24 Reason For Visit: delusional disorder Interim History: Met with pt, reviewed with team.Pt reports she is working with team, her [employer] and [employer] company on identity theft issues where a credit card was opened in her name. She reports she is feeling well. She requests Ensure in the a.m. for supplementation (team report an issue with her breakfast order today). Team report she is taking some medicine. LLE dressing changes team report are without current issues and pt is pending court. Wt. reported 183. Medication Compliance: Intermittent Review of Systems Review of Systems Denies today Mental Status Exam Mental Status Exam Patient Appearance: Appropriate Level of Consciousness: Alert Patient Behavior: Appropriate, Talkative, Cooperative and Good Eye Contact Mood Description: Constricted Affect Description: Constricted Ability to Follow Directions: Good Speech Pattern: Spontaneous Speech Thought Process: Distracted Judgement: Poor Diagnostics Vital Signs (24Hr): Vital Signs - 24 hr 07/16/24 20:00 07/17/24 08:00 07/17/24 09:05 Temperature 97.5 F 98.3 F Pulse Rate 65 70 Respiratory Rate 16 18 Blood Pressure 124/67 106/62 106/62 Pulse Oximetry 96 98 Oxygen Delivery Method Room Air Room Air BMI result Body Mass Index 26.3 Labs 06/23/24 12:27 06/21/24 17:59 Imaging Radiology Impressions: ITS Impressions Knee X-Ray 06/23/24 15:05 IMPRESSION: 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 Suprapatellar bursa joint effusion, small to moderate volume. Electronically signed by: Madhu Perez MD 06/23/2024 03:43 PM EDT Medications Medications Current Medications Acetaminophen (Acetaminophen 325 Mg Tablet) 650 mg PO Q6H PRN PRN Reason: Headache/Pain, Scale 1-10 Last Admin: 07/16/24 06:51 Dose: 650 mg Al Hydroxide/Mg Hydroxide (Magnesium Hydrox/Alum Hydrox 30 Ml Oral.Susp) 30 ml PO Q6H PRN PRN Reason: Heartburn/Nausea Aspirin (Aspirin 81 Mg Tab.Chew) 81 mg PO DAILY [facility] Last Admin: 07/17/24 09:05 Dose: 81 mg Furosemide (Furosemide 20 Mg Tablet) 20 mg PO DAILY [facility]; Protocol Last Admin: 07/17/24 09:05 Dose: 20 mg Lactic Acid (Ammonium Lactate 12 % Lotion 226 Gm Bottle) 1 appl TOPICAL BID [facility]; Protocol Last Admin: 07/17/24 09:11 Dose: 1 appl Magnesium Hydroxide (Milk Of Magnesia 30 Ml Oral.Susp) 30 ml PO DAILY PRN PRN Reason: Constipation Metoprolol Succinate (Metoprolol Succinate Er 12.5 Mg Halftab.Er.24h) 12.5 mg PO DAILY [facility]; Protocol Last Admin: 07/17/24 09:04 Dose: Not Given Nicotine (Nicotine 21 Mg Patch.Td24) 21 mg TRANSDERMA DAILY [facility] Last Admin: 07/17/24 09:06 Dose: 21 mg Risperidone (Risperidone 1 Mg Tablet) 1 mg PO BID [facility] Last Admin: 07/17/24 09:04 Dose: Not Given Spironolactone (Spironolactone 25 Mg Tablet) 25 mg PO DAILY [facility]; Protocol Last Admin: 07/17/24 09:05 Dose: 25 mg Tramadol HCl (Tramadol Hcl 50 Mg Tablet) 50 mg PO TID [facility] Last Admin: 07/17/24 09:05 Dose: 50 mg Trazodone HCl (Trazodone Hcl 50 Mg Tablet) 50 mg PO BEDTIME PRN PRN Reason: Insomnia Allergies Allergies Allergy/AdvReac Type Severity Reaction Status Date / Time eggplant Allergy Unknown Verified 07/03/24 15:14 onion Allergy Unknown Verified 07/03/24 15:14 peanut Allergy Anaphylaxis Verified 07/03/24 15:14 Peppers, Green Allergy Unknown Verified 07/03/24 15:14 Peppers, Jalapeno Allergy Unknown Verified 07/03/24 15:28 Peppers, Red Allergy Unknown Verified 07/03/24 15:28 Peppers, Yellow Allergy Unknown Verified 07/03/24 15:28 tomato Allergy Unknown Verified 07/03/24 15:14 codeine AdvReac Itching Verified 06/14/24 16:07 Assessment & Plan Assessment & Plan (1) Schizoaffective disorder: Status: Acute Code(s): F25.9 - Schizoaffective disorder, unspecified (2) CHF (congestive heart failure): Status: Acute Code(s): I50.9 - Heart failure, unspecified Assessment and Plan: newly diagnosed at [facility] 06/09/24- started on lasix and spironolactone ECHO 11/24/2023- LV systolic function low normal LVEF 50-55%; Basal inferior wall hypokinetic, dilated left atrium, mild-moderate mitral regurgitation. 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 Plan Ms. He is a 63 year-old woman with hx of paranoid/persecutory delusions and some grandiose delusions. She initially was assessed by N in the community and sent to [place]. She presented with bilateral lower edema, admitted medically and found to have exacerbation of CHF. She presented with paranoid and persecutory delusions, not believing what doctors are telling her about her medical diagnoses and refusing treatment on the basis of delusional believes. It also appears that there has been more concern in terms of her ability to care for herself, and on 05/21/24 per [facility] ED records, was brought by fire dept as apartment had no heat and pt noted to have LE edema. Pt reports this is not true and it was the fire department that boost heater intentionally. We discussed risks, benefits and alternative treatment options, she agrees to continue olanzapine, she declines cardiac medications stating she does not have any problems with her heart. PLAN 06/16 will d/c olanzapine, change to risperidone 1mg po BID. it will be offered, pt can declined as not court mandated. 06/17 continues to decline medications for heart failure, psychosis. additional collateral information gathered related to state of her apartment, ability to care for herself. 06/18 declines medication, swelling of legs worsening due to pt not taking lasix. 06/19 continues to decline medication for HF, swelling of legs worsening. 06/20 continue tx. weight gain of 1kg, 06/21 continue tx, monitor daily weights, encourage medications. 06/22 continue tx. concern in terms of impaired judgment due to paranoid delusions refusing medical care. 06/23: filed to court for involuntary treatment. 06/25 continue tx. will order hospitalist consult to adjust meds for edema, CHF as BP does seem to be getting low. 06/26/2024 Patient refusing Lasix refusing medication for psychosis. Patient is somewhat expansive we have filed for court hearing 06/27/[address] hearing on section 7 pending 8 06/28 continue tx. continues to retain fluids, weight increased today by at least 2 lbs in a day. continues to refuse tx for CHF. 06/29 continue tx. 06/30 continue tx. 07/01 continue tx. continue to retain fluids, decline lasix, BNP less than 200. 07/03: Continue current management and treatment plan. 07/04: continue current management and treatment plan. 07/05 continue tx. pending 7 &8. 07/06 continue tx. 07/07 continue tx 07/08 continue tx. 07/09 continue tx. 07/10: no change in presentation. paranoid delusions. refusing metoprolol and risperidone, taking ASA and lasix. continue current mgmt. 07/11: as for yesterday. focused on upcoming hearing. 07/[address] hearing. 07/[address] hearing. seen by wound nurses due to left leg wound now oozing. not infected at this point.she oonly agrees to take one medication for HF lasix but has declined spironolactone. also not taking risperidone. 07/[address] 07/15 continue tx. 07/16 continue tx. 07/17 continue tx. Reason for continued inpatient stay Substantial Risk for: rapid decompensation Time Spent With Patient Time: Total time managing care of this patient today ____ minutes.
[2024-07-17 20:00] VITALS: BP 141/79; PULSE 64; RESP 16; TEMP 36.8; O2SAT 100
[2024-07-18 04:31] VITALS: BMI 26.5
[2024-07-18] MEDS: Acetaminophen 325 MG TABLET 650 MG PO (06:06)
[2024-07-18 07:43] VITALS: BP 122/71; PULSE 63; RESP 18; TEMP 36.5; O2SAT 98
[2024-07-18] MEDS: Furosemide 20 MG TABLET PO (07:45)
[2024-07-18] MEDS: traMADoL HCL 50 MG TABLET PO ×3 (07:46→20:06)
[2024-07-18] MEDS: Ammonium Lactate 12 % Lotion 226 GM BOTTLE 1 APPL TOPICAL ×2 (07:46→20:07)
[2024-07-18] MEDS: Nicotine 21 MG PATCH.TD24 TRANSDERMA (07:46)
[2024-07-18] MEDS: Spironolactone 25 MG TABLET PO (07:46)
[2024-07-18] MEDS: Aspirin 81 MG TAB.CHEW PO (07:46)
--- NOTE | 2024-07-18 09:18 | P.PNPSI_ITS ---
Subjective Subjective Date of Service: 07/18/24 Reason For Visit: delusional disorder Interim History: Today: Patient seen in group room, appears unkempt, poor hygiene. Had been sitting and casually conversing with male peer but did not present as bothered by the intrusion and was agreeable to talk. 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 LLE edematous which she blames on [employer] but says [facility] is trying to take care of this now . She declined having this commercial insurance underwriter pull a chair up to elevate her leg. There's no point in that . Denies any SI/HI/AH/VH. Friday: Met with pt, reviewed with team.Pt reports she is working with team, her [email or web address] and [email or web address] on identity theft issues where a credit card was opened in her name. She reports she is feeling well. She requests Ensure in the a.m. for supplementation (team report an issue with her breakfast order today). Team report she is taking some medicine. LLE dressing changes team report are without current issues and pt is pending court. Wt. reported 183. Review of Systems Review of Systems Denies today Mental Status Exam Mental Status Exam Narrative: Appearance: wearing own clothes, rotten front teeth, unkempt hair, in NAD Behavior: guarded, suspicious but opening more as conversation went on Psychomotor: no agitation, no retardation noted. 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 Does not believe medical doctors are telling the truth and she denies having CHF. Insight/judgment: impaired x 2. Memory/cog: alert, oriented x 3. situation is vague as she thinks she is here due to conspiracy to steal her her buildings. MOCA on 07/07/2024 scored 16/30 with impairments in higher function of brain such as visuospatial/executive function (1/5), attention (3/6), language repetition (1/2), recall (0/5). Orientation, naming and language fluency are intact. Patient Appearance: Appropriate Patient Orientation: Person and Place Level of Consciousness: Alert Patient Behavior: Appropriate, Talkative, Cooperative and Good Eye Contact Mood Description: Constricted Affect Description: Constricted Patient Cognition Impaired: Yes Ability to Follow Directions: Good Speech Pattern: Spontaneous Speech Memory Description: Remote Impaired Diagnostics Vital Signs (24Hr): Vital Signs - 24 hr 07/17/24 20:00 07/18/24 07:43 Temperature 98.3 F 97.7 F Pulse Rate 64 63 Respiratory Rate 16 18 Blood Pressure 141/79 H 122/71 Pulse Oximetry 100 98 Oxygen Delivery Method Room Air Room Air BMI result Body Mass Index 26.5 Labs 06/23/24 12:27 06/21/24 17:59 Imaging Radiology Impressions: ITS Impressions Knee X-Ray 06/23/24 15:05 IMPRESSION: 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 Suprapatellar bursa joint effusion, small to moderate volume. Electronically signed by: Madhu Perez MD 06/23/2024 03:43 PM EDT RP Medications Medications Current Medications Acetaminophen (Acetaminophen 325 Mg Tablet) 650 mg PO Q6H PRN PRN Reason: Headache/Pain, Scale 1-10 Last Admin: 07/18/24 06:06 Dose: 650 mg Al Hydroxide/Mg Hydroxide (Magnesium Hydrox/Alum Hydrox 30 Ml Oral.Susp) 30 ml PO Q6H PRN PRN Reason: Heartburn/Nausea Aspirin (Aspirin 81 Mg Tab.Chew) 81 mg PO DAILY [facility] Last Admin: 07/18/24 07:46 Dose: 81 mg Furosemide (Furosemide 20 Mg Tablet) 20 mg PO DAILY [facility]; Protocol Last Admin: 07/18/24 07:45 Dose: 20 mg Lactic Acid (Ammonium Lactate 12 % Lotion 226 Gm Bottle) 1 appl TOPICAL BID [facility]; Protocol Last Admin: 07/18/24 07:46 Dose: 1 appl Magnesium Hydroxide (Milk Of Magnesia 30 Ml Oral.Susp) 30 ml PO DAILY PRN PRN Reason: Constipation Metoprolol Succinate (Metoprolol Succinate Er 12.5 Mg Halftab.Er.24h) 12.5 mg PO DAILY [facility]; Protocol Last Admin: 07/18/24 07:50 Dose: Not Given Nicotine (Nicotine 21 Mg Patch.Td24) 21 mg TRANSDERMA DAILY [facility] Last Admin: 07/18/24 07:46 Dose: 21 mg Risperidone (Risperidone 1 Mg Tablet) 1 mg PO BID [facility] Last Admin: 07/18/24 07:50 Dose: Not Given Spironolactone (Spironolactone 25 Mg Tablet) 25 mg PO DAILY [facility]; Protocol Last Admin: 07/18/24 07:46 Dose: 25 mg Tramadol HCl (Tramadol Hcl 50 Mg Tablet) 50 mg PO TID [facility] Last Admin: 07/18/24 07:46 Dose: 50 mg Trazodone HCl (Trazodone Hcl 50 Mg Tablet) 50 mg PO BEDTIME PRN PRN Reason: Insomnia Allergies Allergies Allergy/AdvReac Type Severity Reaction Status Date / Time eggplant Allergy Unknown Verified 07/03/24 15:14 onion Allergy Unknown Verified 07/03/24 15:14 peanut Allergy Anaphylaxis Verified 07/03/24 15:14 Peppers, Green Allergy Unknown Verified 07/03/24 15:14 Peppers, Jalapeno Allergy Unknown Verified 07/03/24 15:28 Peppers, Red Allergy Unknown Verified 07/03/24 15:28 Peppers, Yellow Allergy Unknown Verified 07/03/24 15:28 tomato Allergy Unknown Verified 07/03/24 15:14 codeine AdvReac Itching Verified 06/14/24 16:07 Assessment & Plan Assessment & Plan (1) Schizoaffective disorder: Status: Acute Code(s): F25.9 - Schizoaffective disorder, unspecified (2) CHF (congestive heart failure): Status: Acute Code(s): I50.9 - Heart failure, unspecified Assessment and Plan: newly diagnosed at [facility] 06/09/24- started on lasix and spironolactone ECHO 11/24/2023- LV systolic function low normal LVEF 50-55%; Basal inferior wall hypokinetic, dilated left atrium, mild-moderate mitral regurgitation. 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 Plan Ms. He is a 63 year-old woman with hx of paranoid/persecutory delusions and some grandiose delusions. She initially was assessed by [facility] in the community and sent to [facility]. She presented with bilateral lower edema, admitted medically and found to have exacerbation of CHF. She presented with paranoid and persecutory delusions, not believing what doctors are telling her about her medical diagnoses and refusing treatment on the basis of delusional believes. It also appears that there has been more concern in terms of her ability to care for herself, and on 05/21/24 per [facility] ED records, was brought by fire dept as apartment had no heat and pt noted to have LE edema. Pt reports this is not true and it was the fire department that boost heater intentionally. We discussed risks, benefits and alternative treatment options, she agrees to continue olanzapine, she declines cardiac medications stating she does not have any problems with her heart. PLAN 06/16 will d/c olanzapine, change to risperidone 1mg po BID. it will be offered, pt can declined as not court mandated. 06/17 continues to decline medications for heart failure, psychosis. additional collateral information gathered related to state of her apartment, ability to care for herself. 06/18 declines medication, swelling of legs worsening due to pt not taking lasix. 06/19 continues to decline medication for HF, swelling of legs worsening. 06/20 continue tx. weight gain of 1kg, 06/21 continue tx, monitor daily weights, encourage medications. 06/22 continue tx. concern in terms of impaired judgment due to paranoid delusions refusing medical care. 06/23: filed to court for involuntary treatment. 06/25 continue tx. will order hospitalist consult to adjust meds for edema, CHF as BP does seem to be getting low. 06/26/2024 Patient refusing Lasix refusing medication for psychosis. Patient is somewhat expansive we have filed for court hearing 06/27/[address] hearing on section 7 pending 8 06/28 continue tx. continues to retain fluids, weight increased today by at least 2 lbs in a day. continues to refuse tx for CHF. 06/29 continue tx. 06/30 continue tx. 07/01 continue tx. continue to retain fluids, decline lasix, BNP less than 200. 07/03: Continue current management and treatment plan. 07/04: continue current management and treatment plan. 07/05 continue tx. pending 7 &8. 07/06 continue tx. 07/07 continue tx 07/08 continue tx. 07/09 continue tx. 07/10: no change in presentation. paranoid delusions. refusing metoprolol and risperidone, taking ASA and lasix. continue current mgmt. 07/11: as for yesterday. focused on upcoming hearing. 07/[address] hearing. 07/[address] hearing. seen by wound nurses due to left leg wound now oozing. not infected at this point.she oonly agrees to take one medication for HF lasix but has declined spironolactone. also not taking risperidone. 07/[address] 07/15 continue tx. 07/16 continue tx. 07/17 continue tx. 07/18 conitnue tx. Patient educated on: diagnosis and medication risk/benefits Informed Consent: understands Reason for continued inpatient stay Substantial Risk for: med/psych decompensation Time Spent With Patient Time: Total time managing care of this patient today ____ minutes.
[2024-07-18 20:00] VITALS: BP 111/63; PULSE 71; RESP 16; TEMP 36.6; O2SAT 98
[2024-07-19 07:36] VITALS: BMI 26.3
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
[2024-07-19] MEDS: Nicotine 21 MG PATCH.TD24 TRANSDERMA (08:33)
[2024-07-19 08:34] VITALS: BP 101/70; PULSE 63; RESP 18; TEMP 36.4; O2SAT 98
[2024-07-19] MEDS: traMADoL HCL 50 MG TABLET PO ×3 (08:34→20:51)
[2024-07-19] MEDS: Aspirin 81 MG TAB.CHEW PO (08:34)
[2024-07-19] MEDS: Furosemide 20 MG TABLET PO (08:34)
[2024-07-19 08:35] VITALS: BP 101/70
[2024-07-19] MEDS: Spironolactone 25 MG TABLET PO (08:35)
[2024-07-19] MEDS: Ammonium Lactate 12 % Lotion 226 GM BOTTLE 1 APPL TOPICAL ×2 (08:41→21:37)
[2024-07-19 20:00] VITALS: BP 109/59; PULSE 62; RESP 17; TEMP 36.2; O2SAT 95
[2024-07-20] MEDS: Nicotine 21 MG PATCH.TD24 TRANSDERMA (07:56)
[2024-07-20] MEDS: traMADoL HCL 50 MG TABLET PO ×3 (07:58→21:22)
[2024-07-20] MEDS: Ammonium Lactate 12 % Lotion 226 GM BOTTLE 1 APPL TOPICAL ×2 (07:58→21:27)
[2024-07-20] MEDS: Aspirin 81 MG TAB.CHEW PO (07:59)
[2024-07-20 08:00] VITALS: BP 124/64; PULSE 68; RESP 18; TEMP 36.5; O2SAT 100; BMI 58.1
[2024-07-20] MEDS: Furosemide 20 MG TABLET PO (08:00)
[2024-07-20 08:03] VITALS: BP 124/64
[2024-07-20] MEDS: Spironolactone 25 MG TABLET PO (08:03)
[2024-07-20 20:00] VITALS: BP 126/70; PULSE 73; RESP 16; TEMP 36.2; O2SAT 95
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
[2024-07-21 08:00] VITALS: BP 119/73; PULSE 73; RESP 16; TEMP 36.5; O2SAT 97; BMI 26.3
[2024-07-21] MEDS: Nicotine 21 MG PATCH.TD24 TRANSDERMA (08:20)
[2024-07-21] MEDS: Ammonium Lactate 12 % Lotion 226 GM BOTTLE 1 APPL TOPICAL ×2 (08:21→20:49)
[2024-07-21] MEDS: Aspirin 81 MG TAB.CHEW PO (08:22)
[2024-07-21] MEDS: Spironolactone 25 MG TABLET PO (08:22)
[2024-07-21] MEDS: traMADoL HCL 50 MG TABLET PO ×3 (08:22→20:46)
[2024-07-21] MEDS: Furosemide 20 MG TABLET PO (08:23)
--- NOTE | 2024-07-21 14:39 | HO.PSYCHPN ---
Subjective Subjective Date of Service: 07/21/24 Reason For Visit: delusional disorder Subjective Notes: Section 7 Interim History: Pt slept through the night. She presents as pleasant, has continued to take lasix and spironolactone. allows daily dressing change for her leg. She has agreed to follow up with PCP. She also identified hotel. continues with same delusions. no aggression towards self or others. declines risperidone. Review of Systems Review of Systems Denies today Mental Status Exam Mental Status Exam Narrative: Appearance: wearing own clothes, rotten front teeth, unkempt hair, in NAD Behavior: guarded, suspicious but opening more as conversation went on Psychomotor: no agitation, no retardation noted. No tremors noted Speech: clear, normal rate, verbose, regular rhythm, spontaneous TP: derailment, loose associations TC: paranoid/persecutory delusions Mood: I'm fine Affect: constricted, suspicious SI: denies HI: denies VH/AH: appears internally preoccupied but denies when asked Delusions: complex persecutory and delusional system of senator conspiring to take her buildings away, being able to hack into people's accounts, being monitored by the president of [employer] and Jim Maldonado. Does not believe medical doctors are telling the truth and she denies having CHF. Insight/judgment: impaired x 2. Memory/cog: alert, oriented x 3. situation is vague as she thinks she is here due to conspiracy to steal her her buildings. MOCA on 07/07/2024 scored 16/30 with impairments in higher function of brain such as visuospatial/executive function (1/5), attention (3/6), language repetition (1/2), recall (0/5). Orientation, naming and language fluency are intact. 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 Suprapatellar bursa joint effusion, small to moderate volume. Electronically signed by: Madhu Perez MD 06/23/2024 03:43 PM EDT RP Medications Medications Current Medications Acetaminophen (Acetaminophen 325 Mg Tablet) 650 mg PO Q6H PRN PRN Reason: Headache/Pain, Scale 1-10 Last Admin: 07/18/24 06:06 Dose: 650 mg Al Hydroxide/Mg Hydroxide (Magnesium Hydrox/Alum Hydrox 30 Ml Oral.Susp) 30 ml PO Q6H PRN PRN Reason: Heartburn/Nausea Aspirin (Aspirin 81 Mg Tab.Chew) 81 mg PO DAILY BILLY Last Admin: 07/21/24 08:22 Dose: 81 mg Furosemide (Furosemide 20 Mg Tablet) 20 mg PO DAILY BILLY; Protocol Last Admin: 07/21/24 08:23 Dose: 20 mg Lactic Acid (Ammonium Lactate 12 % Lotion 226 Gm Bottle) 1 appl TOPICAL BID BILLY; Protocol Last Admin: 07/21/24 08:21 Dose: 1 appl Magnesium Hydroxide (Milk Of Magnesia 30 Ml Oral.Susp) 30 ml PO DAILY PRN PRN Reason: Constipation Metoprolol Succinate (Metoprolol Succinate Er 12.5 Mg Halftab.Er.24h) 12.5 mg PO DAILY BILLY; Protocol Last Admin: 07/21/24 08:27 Dose: Not Given Nicotine (Nicotine 21 Mg Patch.Td24) 21 mg TRANSDERMA DAILY BILLY Last Admin: 07/21/24 08:20 Dose: 21 mg Risperidone (Risperidone 1 Mg Tablet) 1 mg PO BID BILLY Last Admin: 07/21/24 08:27 Dose: Not Given Spironolactone (Spironolactone 25 Mg Tablet) 25 mg PO DAILY BILLY; Protocol Last Admin: 07/21/24 08:22 Dose: 25 mg Tramadol HCl (Tramadol Hcl 50 Mg Tablet) 50 mg PO TID BILLY Last Admin: 07/21/24 14:13 Dose: 50 mg Trazodone HCl (Trazodone Hcl 50 Mg Tablet) 50 mg PO BEDTIME PRN PRN Reason: Insomnia Allergies Allergies Allergy/AdvReac Type Severity Reaction Status Date / Time eggplant Allergy Unknown Verified 07/03/24 15:14 onion Allergy Unknown Verified 07/03/24 15:14 peanut Allergy Anaphylaxis Verified 07/03/24 15:14 Peppers, Green Allergy Unknown Verified 07/03/24 15:14 Peppers, Jalapeno Allergy Unknown Verified 07/03/24 15:28 Peppers, Red Allergy Unknown Verified 07/03/24 15:28 Peppers, Yellow Allergy Unknown Verified 07/03/24 15:28 tomato Allergy Unknown Verified 07/03/24 15:14 codeine AdvReac Itching Verified 06/14/24 16:07 Assessment & Plan Assessment & Plan (1) Schizoaffective disorder: Status: Acute Code(s): F25.9 - Schizoaffective disorder, unspecified (2) CHF (congestive heart failure): Status: Acute Code(s): I50.9 - Heart failure, unspecified Assessment and Plan: newly diagnosed at [facility] 06/09/24- started on lasix and spironolactone ECHO 11/24/2023- LV systolic function low normal LVEF 50-55%; Basal inferior wall hypokinetic, dilated left atrium, mild-moderate mitral regurgitation. 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 Plan Ms. He is a 63 year-old woman with hx of paranoid/persecutory delusions and some grandiose delusions. She initially was assessed by N in the community and sent to [facility]. She presented with bilateral lower edema, admitted medically and found to have exacerbation of CHF. She presented with paranoid and persecutory delusions, not believing what doctors are telling her about her medical diagnoses and refusing treatment on the basis of delusional believes. It also appears that there has been more concern in terms of her ability to care for herself, and on 05/21/24 per [facility] ED records, was brought by fire dept as apartment had no heat and pt noted to have LE edema. Pt reports this is not true and it was the fire department that boost heater intentionally. We discussed risks, benefits and alternative treatment options, she agrees to continue olanzapine, she declines cardiac medications stating she does not have any problems with her heart. PLAN 06/16 will d/c olanzapine, change to risperidone 1mg po BID. it will be offered, pt can declined as not court mandated. 06/17 continues to decline medications for heart failure, psychosis. additional collateral information gathered related to state of her apartment, ability to care for herself. 06/18 declines medication, swelling of legs worsening due to pt not taking lasix. 06/19 continues to decline medication for HF, swelling of legs worsening. 06/20 continue tx. weight gain of 1kg, 06/21 continue tx, monitor daily weights, encourage medications. 06/22 continue tx. concern in terms of impaired judgment due to paranoid delusions refusing medical care. 06/23: filed to court for involuntary treatment. 06/25 continue tx. will order hospitalist consult to adjust meds for edema, CHF as BP does seem to be getting low. 06/26/2024 Patient refusing Lasix refusing medication for psychosis. Patient is somewhat expansive we have filed for court hearing 06/27/[address] hearing on section 7 pending 8 06/28 continue tx. continues to retain fluids, weight increased today by at least 2 lbs in a day. continues to refuse tx for CHF. 06/29 continue tx. 06/30 continue tx. 07/01 continue tx. continue to retain fluids, decline lasix, BNP less than 200. 07/03: Continue current management and treatment plan. 07/04: continue current management and treatment plan. 07/05 continue tx. pending 7 &8. 07/06 continue tx. 07/07 continue tx 07/08 continue tx. 07/09 continue tx. 07/10: no change in presentation. paranoid delusions. refusing metoprolol and risperidone, taking ASA and lasix. continue current mgmt. 07/11: as for yesterday. focused on upcoming hearing. 07/[address] hearing. 07/[address]. seen by wound nurses due to left leg wound now oozing. not infected at this point.she oonly agrees to take one medication for HF lasix but has declined spironolactone. also not taking risperidone. 07/[address] 07/15 continue tx. 07/16 continue tx. 07/17 continue tx. 07/18 conitnue tx. 07/[address] 07/20 continue tx. 07/21 continue tx. Reason for continued inpatient stay Substantial Risk for: inability to function Time Spent With Patient Time: Total time managing care of this patient today ____ minutes.
[2024-07-21 20:00] VITALS: BP 122/64; PULSE 63; RESP 18; TEMP 36.1; O2SAT 99
[2024-07-22 08:27] VITALS: BP 115/65; PULSE 66; RESP 18; TEMP 36.1; O2SAT 98
[2024-07-22] MEDS: Furosemide 20 MG TABLET PO (08:28)
[2024-07-22] MEDS: Aspirin 81 MG TAB.CHEW PO (08:28)
[2024-07-22] MEDS: Spironolactone 25 MG TABLET PO (08:28)
[2024-07-22] MEDS: traMADoL HCL 50 MG TABLET PO ×2 (08:29→13:42)
[2024-07-22] MEDS: Nicotine 21 MG PATCH.TD24 TRANSDERMA (08:30)
--- NOTE | 2024-07-22 10:37 | P.DS_ITS ---
DS: Providers Provider Date of Service: 07/22/24 Date of admission: 06/14/24 14:36 Date of discharge: 07/22/24 Primary care physician: Lizeth Mayers MD Consults: 06/14/24 16:07 Consult to Hospitalist Routine Comment: Consulting Provider: [facility] Reason For Exam: medical H&P 06/14/24 16:11 Consult to Wound Care Routine Reason for consultation: right calf wound 06/23/24 09:22 Consult to Hospitalist Routine Comment: Consulting Provider: [facility] Reason For Exam: right knee pain 06/25/24 11:40 Consult to Hospitalist Routine Comment: Consulting Provider: [facility] Reason For Exam: HOTN with current regimen for edema/CHF Discharging clinician: Maria Elena Zuluaga DS: Diagnosis Discharge Diagnosis (1) Schizoaffective disorder: Status: Acute (2) CHF (congestive heart failure): Status: Acute (3) NSTEMI (non-ST elevated myocardial infarction): Status: Acute (4) CVA (cerebral vascular accident): Status: Acute DS: Medications Discharge Medications Home Medications: Home Medications ?Medication ?Instructions ?Recorded ?Confirmed metoprolol succinate 25 mg 25 mg PO DAILY 06/14/24 06/14/24 tablet,extended release 24 hr Previous Rx's ?Medication ?Instructions ?Recorded acetaminophen 325 mg tablet 650 mg (2 x 325 mg) PO Q6H PRN 07/22/24 Headache/Pain, Scale 1-10 #60 tabs ammonium lactate 12 % lotion 1 appl topical BID #225 grams 07/22/24 aspirin 81 mg chewable tablet 81 mg PO DAILY #30 tabs 07/22/24 furosemide 20 mg tablet 20 mg PO DAILY #30 tabs 07/22/24 spironolactone 25 mg tablet 25 mg PO DAILY #30 tabs 07/22/24 tramadol 50 mg tablet 50 mg PO TID #45 tabs 07/22/24 Mental Status Exam Mental Status Exam Narrative: Appearance: wearing own clothes, rotten front teeth, unkempt hair, in NAD Behavior: guarded, suspicious but opening more as conversation went on Psychomotor: no agitation, no retardation noted. 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 Does not believe medical doctors are telling the truth and she denies having CHF. Insight/judgment: impaired x 2. Memory/cog: alert, oriented x 3. situation is vague as she thinks she is here due to conspiracy to steal her her buildings. MOCA on 07/07/2024 scored 16/30 with impairments in higher function of brain such as visuospatial/executive function (1/5), attention (3/6), language repetition (1/2), recall (0/5). Orientation, naming and language fluency are intact. ACL 4.4 showing moderate cognitive impairments. 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 Suprapatellar bursa joint effusion, small to moderate volume. Electronically signed by: Madhu Perez MD 06/23/2024 03:43 PM EDT RP DS: Summary Hospital Course Hospital Course: Ms. He is a 63 year-old woman with hx of paranoid/persecutory and some grandiose delusions who initially was assessed by N in the community (place of the assessment is unknown). Pt was transferred to [facility] on 05/28/2024l. She presented with bilat lower extremity edema and wound on left calf due to untreated edema. Pt was medically admitted. She was found to have elevated BNP 722, high sensitivity troponin were high but stable at 44. She had bilateral LE venous doppler which was negative for DVT. She was found to be in exacerbation of what seems to be new diagnosis of CHF. She was seen by cardiology, started on IV lasix for diuresis. She was transitioned to oral lasix and spironolactone. Other pertinent labs completed at [place] on 06/09/2024 include CBC without leukocytosis or leukopenia. CMP with no electrolyte abnormalities, but BUN elevated at 32, Cr 0.68, creatinine clearance 97, LFT wnl. Per medical records from [place], pt is known to [facility] through previous admission back in 11/2023 on medical floor when she was found to have NSTEMI but denied cardiac catheterization. Pt noted to have paranoid delusions stating she did not trust d octors and did not think their diagnoses were accurate. 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 She also reported that this person along with others including staff at the hospital were trying to make her transgendered with combination of substances she had formula for. Her utox was negative. While at [facility] pt was seen by psychiatric consult and started on olanzapine 5mg po BID. On the unit, pt presents as somewhat guarded and irritable. She reports that she has been followed by this person who is now a senator. She reports other powerful people, including president Loretta and [place] Melendezk are going after her. She reports she has the mental power to hack into people's account and that her friends and family are also at risk. She reports that she does not believe there is anything wrong with her heart and does not believe she has heart failure and thinks this is all conspiracy to keep her in the hospital. She reports she does not need medications for blood pressure nor to lower cholesterol to decrease risk of CVA which she has had in the past. She denies SI and HI. She does report previous psychiatric admission but does not provide much information about it. She reports she used to see a psychologist after her divorce but she was told she has no mental illness. She denies taking psychotropic medications in the past. She denies hearing voices but at the same time reports that she hears people here on the unit talking about her and talking about how patients here get lobotomies. She denies any problems with sleep or appetite. Pt reports she does not feel safe anywhere and does not know who she can trust. Other medical records gathered from [facility], as we have very limited information about Ms. 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 She was also noted to have bilateral edema and wound on left calf and sent to the hospital. Head CT from 11/23/2023 showed encephalomalacia in the right parietotemporal lobe and left insula, multiple small foci of chronic infarct and global atrophy. Past Psychiatric History: Inpt: pt reports prior admission but unclear where OP: none Pt denies hx of suicide attempts HOSPITAL COURSE On the unit, pt was initially admitted on a CV. She declined risperidone, medication for heart failure to prevent fluid retention. Her legs progressively became more swollen and she was retaining fluids. She did not believe she had heart failure and that this was a lie. She believed that [facility] had done this to her. She also believes that her food was altered by politician who she claimed was trying to steal her commercial property. She reported that male patients on the unit were pedophiles and that she knew them. She did not show signs of aggression towards anyone, but was accusatory towards staff and peers. Initially given worsening of medical condition and lack of capacity to make medical decisions due to paranoid delusions, team filed to the court for involuntary treatment. She did eventually agreed to take two of the medications to help with fluids retention including lasix and spironolactone. Bilateral edema decreased. She does have wound on left calf and did allow daily wound care. She declined antipsychotics during admission including a trial of risperidone and olanzapine. Given that she continue taking spironolactone and lasix, and medically she appeared more stable with no signs of exacerbation of heart failure, with BNP of less than 200, petition was cancelled and she was discharged on the day of court hearing. She was sleeping through the night and eating well. She had reported that she has a gun at home for protection. She denied homicidal ideation. She made vague threats to use gun to protect herself which she stated mostly to let others know that she has a gun but not with intention to harm anyone. However, given her impaired judgment and insight and degree of paranoid delusions towards wide range of people and as she meets new people she quickly becomes paranoid towards them, [place] Police were called and informed of patient having a gun and concern in terms of paranoid delusions. Patient was also encouraged to work with police to retrieve the gun but she declined. During the hospital stay, she was not aggressive towards anyone despite her level of paranoid delusions. She was also consistent with her report that she did not plan to hurt anyone despite what she thought they were doing to her. Cognitive assessments were completed as she has hx of CVA. She had MOCA on 07/07/2024 scored 16/30 with impairments in higher function of brain such as visuospatial/executive function (1/5), attention (3/6), language repetition (1/2), recall (0/5). Orientation, naming and language fluency are intact. ACL score was 4.4, showing moderate cognitive impairments. Her pattern of cognitive impairment is vascular type. Status at Discharge Cognitive/behavioral status at discharge: Pt with brighter affect. No SI/HI. Ongoing paranoid delusions. Sleeping and eating well. TP: tangential at times. TC: paranoid ideas. Insight/judgment: impaired x 2. No aggression towards self or others. Time Spent with Patient Time attestation: Total time managing care of this patient today _40___ minutes. Time spent: Greater than 30 minutes Discharge Plan Discharge Anticipated Discharge Date/Time: 07/22/24 10:16 Patient Disposition: Home, Self-Care Discharge Diagnosis: schizoaffective disorder Referrals: [facility] [Other] - 1 Week (Per your request referral was placed for a new PCP. Please follow up with the office for an appointment. ) [employer] Case Management: Dee [Other] - 1 Week (You have been assigned a caseworker protective services through your [employer] insurance plan and she can be reached at [phone] if you wish to contact her. ) [facility] [Other] - 1 Week (Referral placed. Please be available for home visit. ES to contact you. ) [facility] [place] [Other] - 07/26/24 1:00 pm (You have a follow up appointment scheduled with wound clinic on 07/26/24 at 1pm. ) Discharge Medications: New acetaminophen 325 mg Tablet 650 mg PO Q6H PRN (Reason: Headache/Pain, Scale 1-10) Qty: 60 0RF ammonium lactate 12 % Lotion 1 appl topical BID Qty: 225 0RF Protocol: Apply to: Apply to: Lower legs bilaterally tramadol 50 mg Tablet 50 mg PO TID Qty: 45 0RF spironolactone 25 mg Tablet 25 mg PO DAILY Qty: 30 0RF Protocol: Hold for SBP< HOLD for SBP < : 90 aspirin 81 mg Tablet,Chewable 81 mg PO DAILY Qty: 30 0RF furosemide 20 mg Tablet 20 mg PO DAILY Qty: 30 0RF Protocol: Hold for SBP< HOLD for SBP < : 90 Continued metoprolol succinate 25 mg Tablet Extended Release 24 Hr 25 mg PO DAILY Discontinued furosemide 40 mg Tablet 40 mg PO DAILY atorvastatin 40 mg Tablet 40 mg PO DAILY ibuprofen 400 mg Tablet 400 mg PO Q8H PRN (Reason: Mild Pain (Scale Score 1-4)) aspirin 81 mg Tablet,Chewable 81 mg PO DAILY olanzapine 5 mg Tablet 5 mg PO BID spironolactone 25 mg Tablet 25 mg PO DAILY Discharge Orders: Discharge Order (Routine); Ordered 07/22/24 Ordered By: Maria Elena Zuluaga Diet: Regular diet Activity on Discharge: As tolerated Stand Alone Forms: Patient Portal Discharge page, Community Support Print Language: Unable To Collect Care Plan Goals: 1. maintain mood 2. no si/hi 3. no aggression towards self or others Health Concerns: follow up with PCP for routine care for HF, bilateral leg edema. Plan of Treatment: 1. Take medications as prescribed. 2. Go to nearest ED or call 911 in event of emergency. Assessment: Pt with bright, non labile. paranoid ideas present. No aggression towards self or others. Sleeping and eating well. Discharge Date/Time: 07/22/24 14:35
== END 2024-07-22 14:35 | disposition home or self-care (01) | DRG 885 ==
PROVIDERS: Physician Assistant; Admitting Provider Social Worker; PCP Internal Medicine; Visit Provider Social Worker
DX: F25.9 Schizoaffective disorder, unspecified (principal); L97.229 Non-pressure chronic ulcer of left calf with unspecified severity; F17.210 Nicotine dependence, cigarettes, uncomplicated; Z71.6 Tobacco abuse counseling; I34.0 Nonrheumatic mitral (valve) insufficiency; Z86.73 Personal history of transient ischemic attack (TIA), and cerebral infarction without residual deficits; I25.10 Atherosclerotic heart disease of native coronary artery without angina pectoris; M17.11 Unilateral primary osteoarthritis, right knee; I11.0 Hypertensive heart disease with heart failure; I50.9 Heart failure, unspecified; I25.2 Old myocardial infarction; I87.2 Venous insufficiency (chronic) (peripheral); Z79.82 Long term (current) use of aspirin; Z79.899 Other long term (current) drug therapy
CPT/HCPCS: 36415; 73560; 80053; 80061; 82607; 83036; 83735; 83880; 84443; 85025; 85652; 86140; 86141; 93970; 93971

== ENCOUNTER → 2024-06-14 14:36 | Outpatient (BNV) | payer MEDICARE, SELFPAY | PROVIDERS: Admitting Provider Social Worker; PCP Internal Medicine; Visit Provider Psychiatry & Neurology Psychiatry | DX: F25.9 Schizoaffective disorder, unspecified (principal); I50.9 Heart failure, unspecified; I21.4 Non-ST elevation (NSTEMI) myocardial infarction; I63.9 Cerebral infarction, unspecified | CPT/HCPCS: 99231; 99232 ==

== ENCOUNTER → 2024-06-14 14:36 | Outpatient (BNV) | payer MEDICARE, SELFPAY | PROVIDERS: Admitting Provider Social Worker; PCP Internal Medicine; Visit Provider Social Worker | DX: F25.9 Schizoaffective disorder, unspecified (principal); I50.9 Heart failure, unspecified; I21.4 Non-ST elevation (NSTEMI) myocardial infarction; Z86.73 Personal history of transient ischemic attack (TIA), and cerebral infarction without residual deficits | CPT/HCPCS: 90792; 99231; 99232 ==

== ENCOUNTER → 2024-06-14 14:36 | Outpatient (BNV) | payer MEDICARE, SELFPAY | PROVIDERS: Admitting Provider Social Worker; PCP Internal Medicine; Visit Provider Student in an Organized Health Care Education/Training Program | DX: Z00.8 Encounter for other general examination (principal) | CPT/HCPCS: 99222; 99499 ==